=== PATIENT | female | born 1930 | race Caucasian/White ===

== ENCOUNTER 2016-06-11 12:31 | Inpatient (IN) | payer MEDICARE, BC ==
--- NOTE | ~2016-06-11 | CO ---
Unit #: [id number] #: [id number] Patient: VALENTIN BUSTILLO [id number] [address] [place], [place] [address] [id number] I MR#: [id number] NAME: VALENTIN BUSTILLO ROOM: 314 Age: 85 Sex: F Admission Date: 06/11/2016 : 1930 Attending Physician: Nadeem Sales M.D. Primary Care Physician: Louann Young M.D. Requesting Physician: Tatiana Villegas M.D. Consultation Date: 06/13/2016 CONSULTATION REPORT REASON FOR CONSULTATION Lymphadenopathy, please evaluate. HISTORY OF PRESENT ILLNESS The patient is 85-year-old, whom I have seen in the past with thrombocytopenia, who is admitted with a history of end stage renal disease, paroxysmal atrial fibrillation with severe abdominal pain. Pain admitted was all over the abdomen but predominantly in the right side. Now she tells me the pain is much better but is on the left side. Following admission she had a CT scan of the abdomen and pelvis, which showed small bilateral pleural effusions with abnormal thickening around the superior mesenteric artery with significant atherosclerotic disease throughout the abdominal aorta, including the branches. There was mild lymphadenopathy in the abdomen. There was no abdominal lymphadenopathy. It was thought that the thickening around the superior mesenteric artery could be an aneurysm with thrombus. She was seen by vascular surgery who felt that this may be an area of focal vasculitis and recommended hematology evaluation. CT scan of the chest done previously has shown mild mediastinal lymphadenopathy with a paratracheal lymph node measuring 2.8 to 2.1 cm and a subcarinal lymph node at 1.7 cm from 01/06/2016, which has been present since 2014 without a significant change. Ms. Bustillo has mild dementia but is otherwise alert and tells me that she has had no history of any malignancy in the past. No previous night sweats or significant changes in appetite except those accompanying her admission. She tells me bowel habits are generally regular. PAST MEDICAL HISTORY 1. End stage renal disease on hemodialysis for the past year or so. 2. Paroxysmal atrial fibrillation. 3. Congestive heart failure. 4. Hypertension. 5. Hyperlipidemia. 6. Peripheral vascular disease. 7. Anemia and thrombocytopenia in the past. 8. Chronic respiratory failure. 9. COPD. 10. Obstructive sleep apnea. 11. Dementia. PAST SURGICAL HISTORY 1. Cholecystectomy. 2. Hysterectomy. 3. Shoulder surgery. 4. Elbow surgery. Unit #: [id number] #: [id number] Patient: VALENTIN BUSTILLO 5. Coronary bypass grafting. 6. AV fistula. FAMILY HISTORY Notable for father dying at age 90 and a brother at the same age as well. SOCIAL HISTORY Personal smoker. Denied any alcohol. She currently lives alone, using a walker. ALLERGIES Morphine. REVIEW OF SYSTEMS Fourteen point review of systems taken. CONSTITUTIONAL: As discussed above. EYES: Negative. EARS, NOSE, MOUTH AND THROAT: Negative. CARDIOVASCULAR: No chest pain or palpitation. RESPIRATORY: Negative. GASTROINTESTINAL: As discussed. GENITOURINARY: Negative. NEUROLOGIC: History of mild dementia. ALLERGIC/LYMPHATICS: Negative. SKIN: Easy bruisability. PSYCHIATRIC: Negative. PHYSICAL EXAMINATION GENERAL: She is a pleasant, elderly woman, awake, alert, and oriented x3. VITAL SIGNS: Temperature is 98.2, pulse 72, respiratory 16, blood pressure 184/85, which sats 94% on room air. HEENT: Pupils are equal and react well. No pallor or icterus. Mucous membranes are moist. NECK: No JVD or thyromegaly. CARDIOVASCULAR: First and second heart sounds were heard and regular. No murmurs, gallops, or rubs. LUNGS: Chest expansion was symmetric with some decreased air entry at the bases. No adventitious sounds. ABDOMEN: Soft and nontender. Bowel sounds are present. No organomegaly. EXTREMITIES: Warm with good pulses. No edema, cyanosis or clubbing. NEUROLOGICAL: She is awake, alert and oriented x3, no focal findings. PSYCHIATRIC: Normal affect. LYMPHATICS: Negative. SKIN: Some bruises. DIAGNOSTIC STUDIES LABORATORY STUDIES: CBC with a white count of 5.9, hemoglobin 9.4, platelet count is 145,000. A complete metabolic panel - BUN 20, creatinine 2. EGFR is 25.2. Total protein 5.1, albumin 2.7. IMAGING STUDIES: Radiology - CT scan of the abdomen and pelvis was personally reviewed by me and shows no abdominal lymphadenopathy or splenomegaly. Thickening of the superior mesenteric artery as mentioned. ASSESSMENT AND PLAN Ms. Valentin Bustillo is 85 years old with a history of multiple complex medical problems including coronary artery disease, paroxysmal atrial fibrillation, congestive heart failure, end stage renal disease, and mild Unit #: [id number] #: [id number] Patient: VALENTIN BUSTILLO, who was on maintenance hemodialysis. She is admitted to the hospital with abdominal pain, which appears to have resolved for the greater part at this moment. 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 She has no other evidence of abdominal lymphadenopathy but has had a history of mediastinal lymphadenopathy, which has been stable in the past without any new CT scans. I discussed the situation with Ms. Bustillo and thereafter with Dr. Matson of interventional radiology. It may be possible to do an FNA of the thickening around the superior mesenteric artery. However, the yield is likely to be low. He still favors vasculitis or thrombus in an aneurysm. Will get a sedimentation rate, C reactive protein, (1) LDH and based upon that, I will discuss. Will also (2) of advanced age and end stage renal failure. Thank you for allowing me to participate in her care. Dictated by... Augustus Pruitt/margie TD: 06/14/2016 06:13 JOB #: [id number] CONSULTATION REPORT X Cleveland Carey MD X CONSULTATION REPORT
--- NOTE | ~2016-06-11 | CT2 ---
[facility] A Service of [facility] RADIOLOGY TEXT RESULTS PATIENT: VALENTIN ASHLEY LOCATION: [facility] 314-01 : 30 UNIT #: [id number] AGE: [address]: Tatiana Villegas MD SEX: F ORDER DR: [id number] [facility] [address] [facility]. [place], [place] [address] [id number] MR#: [id number] Acc #: [id number] NAME: VALENTIN ASHLEY : 1930 SEX: F STUDY DATE/TIME: 06/11/2016 14:41 UNIT: JAYDEN ROOM: STUDY DESCRIPTION: CT Abd and Pelv W Cont Attending Physician: Penelope Herrera M.D. Ordering Physician: Penelope Herrera M.D. Primary Care Physician: Louann Young M.D. MEDICAL IMAGING REPORT This report is preliminary unless electronic signature is present EXAM CT abdomen and pelvis with contrast 06/11/2016 INDICATIONS Left-sided abdominal pain for the past 4 days. PROCEDURE Contrast-enhanced CT of the abdomen and pelvis. This CT exam was performed with one or more of the following radiation dose reduction techniques: automatic exposure control, adjustment of mA and/or kV according to patient size, and iterative reconstruction. COMPARISON STUDIES 06/11/[address] ABDOMEN WITH CONTRAST: There are bilateral pleural effusions small on the right, moderately large on the left. The liver, spleen, kidneys, adrenal glands, pancreas show no acute abnormality. Previous cholecystectomy. There is abnormal thickening, surrounding the SMA. This was seen on the previous study and is similar. There is significant atherosclerotic disease throughout the abdominal aorta including major abdominal branch arteries. Probably significant narrowing at the origin of the SMA. Bowel loops are nondilated. Sigmoid diverticula without convincing evidence for active complication. PELVIS WITH CONTRAST: Small amount of nonspecific fluid in the pelvis. Generalized body wall edema. No aggressive appearing bone lesion. IMPRESSION [facility] A Service of [facility] RADIOLOGY TEXT RESULTS PATIENT: VALENTIN ASHLEY LOCATION: [facility] 314-01 : 30 UNIT #: [id number] AGE: [address]: Tatiana Villegas MD SEX: F ORDER DR: 1. Bilateral pleural effusions left greater than right are similar to the prior. 2. Abnormal enhancing soft tissue around the proximal SMA. 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 3. Significant atherosclerotic irregularity in the abdominal aorta and major abdominal branch arteries with probably significant narrowing at the origin of the SMA. 4. No evidence for bowel obstruction. 5. Other findings detailed above. Dictated by... Ravinder Oseguera M.D. THIS IS AN ELECTRONICALLY VERIFIED REPORT Ravinder Oseguera M.D. at 06/12/2016 7:18 AM LUIS ANGEL/jasvir TD: 06/11/2016 18:13 JOB #: [id number] MEDICAL IMAGING REPORT COPY
--- NOTE | ~2016-06-11 | CO ---
Unit #: [id number] #: [id number] Patient: VALENTIN BUSTILLO [id number] [address] [place], [place] [address] [id number] I MR#: [id number] NAME: VALENTIN BUSTILLO ROOM: 314 Age: 85 Sex: F Admission Date: 06/11/2016 : 1930 Attending Physician: Nadeem Sales M.D. Primary Care Physician: Louann Young M.D. Consultation Date: 06/14/2016 CONSULTATION REPORT REASON FOR CONSULTATION Abdominal pain. HISTORY OF PRESENT ILLNESS Thank you very much for asking us to see Ms. Bustillo. She is an 85-year-old white female, whose past medical history is remarkable for end-stage renal disease, on dialysis; atrial fibrillation; congestive heart failure; hyperlipidemia; hypertension; peripheral vascular disease; chronic respiratory failure; COPD; coronary artery disease; who presented with a 7 to 10 day history of abdominal pain. The pain is diffuse and constant. She has had some nausea, but no vomiting. She denies GI bleeding. She has had some loose bowel movements. She had a CT scan performed on 06/07/2016 and at that time, the CT scan revealed an abnormal appearance to the origin of this superior mesenteric artery. It involved 2 cm of the distance with some dilatation proximally. She was sent home and was readmitted with abdominal pain. A repeat CT scan on 06/11/2016 revealed abnormal appearance of the proximal superior mesenteric artery. There was circumferentially soft tissue density material around the proximal 2.8 cm of the SMA. This is more than it was before. There are some changes in that area as well. The patient had evaluation by Dr. Neri of Vascular Surgery and had her CT scan performed with contrast and this showed some significant narrowing in this area. She was admitted for further evaluation. She presents at this time for evaluation of her abdominal pain. PAST SURGICAL HISTORY Cholecystectomy, hysterectomy, shoulder surgery, elbow surgery, coronary artery bypass grafting, AV fistula for dialysis. SOCIAL HISTORY No tobacco or alcohol use. FAMILY HISTORY Noncontributory. ALLERGIES Morphine. MEDICATIONS Please see med rec sheet. PAST MEDICAL HISTORY See above. Unit #: [id number] #: [id number] Patient: VALENTIN BUSTILLO IMMUNIZATION STATUS Unknown. PHYSICAL EXAMINATION GENERAL: Weak-appearing, white female, in no apparent distress. VITAL SIGNS: Afebrile. Vital signs stable. NECK: Supple. No thyromegaly or adenopathy. BACK: No CVA or spinous tenderness. ABDOMEN: Examination of the abdomen reveals diffuse tenderness with some guarding left greater than right, but no rebound or peritoneal signs or masses. DIAGNOSTIC STUDIES LABORATORY RESULTS: Reveal the patient to have a CMP with a glucose of 90, BUN 15, creatinine 2.9, sodium 135, potassium 3.7, CO2 is 26. Liver function studies 2 days ago were within normal limits. The CBC reveals the patient to have a white count of 3.6, hemoglobin 9.6, hematocrit 29.7, MCV of 85.8, and platelet count of 134,000. IMPRESSION An 85-year-old female with diffuse abdominal pain, changes to the superior mesenteric artery, and significant narrowing. She has diffuse abdominal pain. No other significant abnormalities were found on CT scan. We feel she needs upper as well as lower endoscopy for further evaluation for possible gastritis or ulcer disease and in addition possibly colitis or evidence of ischemic changes to the lining of the large intestine. All the risks and benefits have been fully explained to the patient in detail as well as to her granddaughter including the risk of bleeding, perforation, emergency surgery, transfer, , and other risks. They understand completely and requests to proceed. We will also have Dr. Neri of Vascular Surgery to re-evaluate. Dictated by... Augustus Nicholas/ananya TD: 06/15/2016 06:28 JOB #: [id number] CC: Augustus Pruitt M.D. [facility] CONSULTATION REPORT X Reese Tejeda MD CONSULTATION REPORT
--- NOTE | ~2016-06-11 | CR206 ---
[facility] A Service of [facility] RADIOLOGY TEXT RESULTS PATIENT: VALENTIN ASHLEY LOCATION: [facility] 314-01 : 30 UNIT #: [id number] AGE: [address]: Nadeem Sales MD SEX: F ORDER DR: [id number] [facility] [address]. [place], [place] [address] [id number] I MR#: [id number] #: [id number] NAME: VALENTIN ASHLEY : 1930 SEX: F STUDY DATE/TIME: 06/14/2016 13:11 UNIT: A U ROOM: [facility] STUDY DESCRIPTION: CR Pelvis 1 or 2 Views Attending Physician: Nadeem Sales M.D. Ordering Physician: Nadeem Sales M.D. Primary Care Physician: Louann Young M.D. MEDICAL IMAGING REPORT This report is preliminary unless electronic signature is present EXAM AP radiograph pelvis 06/14/2016 HISTORY Fall. Pain in hips. Fell today. FINDINGS AP radiograph of the pelvis presented. Multiple surgical clips over the mid abdomen. No traumatic fracture or malalignment. The visualized proximal femurs are intact. Bony ring of pelvis, sacroiliac joints, and sacral arcuate lines appear intact. Bowel gas pattern normal. Atherosclerotic arterial calcifications. Surgical clips medial upper right thigh perhaps from prior vascular intervention. Periarticular soft tissues show no acute appearing abnormality. Dictated by... Michael Montano M.D. THIS IS AN ELECTRONICALLY VERIFIED REPORT Michael Montano M.D. at 06/16/2016 8:22 PM REZA/jace TD: 06/14/2016 15:37 JOB #: [id number] MEDICAL IMAGING REPORT COPY
--- NOTE | ~2016-06-11 | HP ---
Unit #: [id number] #: [id number] Patient: VALENTIN ASHLEY [id number] [facility] [address] [facility]. [place], [place] [address] [id number] MR#: [id number] NAME: VALENTIN ASHLEY ROOM: Age: 85 Sex: F Admission Date: 06/11/2016 : 1930 Attending Physician: Penelope Herrera M.D. Primary Care Physician: Louann Young M.D. HISTORY AND PHYSICAL CHIEF COMPLAINT Abdominal pain. HISTORY OF PRESENT ILLNESS The patient is an 85-year-old female with past medical history of end-stage renal disease on dialysis, paroxysmal atrial fibrillation, CHF, hypertension, hyperlipidemia, peripheral vascular disease, chronic anemia, chronic respiratory failure, COPD, obstructive sleep apnea, coronary artery disease, chronic thrombocytopenia, gout, dementia who presented to the emergency department for evaluation of the above. The patient states that she has had a one-week history of abdominal pain. The pain involves the entire abdomen but is worse on the right side. She describes it as "severe." There are no exacerbating or alleviating factors. She denies any similar pain. She has had decreased appetite with nausea but no vomiting. She states that her last bowel movement was three to four days ago. She denies any fever. No chest pain. No difficulty breathing. No urinary symptoms. She still makes urine. She was due for dialysis today. Of note, the patient was seen at [facility] on June 07, 2016 for shortness of breath and dyspnea. She underwent a CT of the abdomen and pelvis as part of her evaluation. She was discharged home with a diagnosis of CHF. Today, she returns due to persisting pain. CT of the abdomen and pelvis was repeated today and showed abnormal appearance of the proximal superior mesenteric artery concerning for possible aneurysm. Mildly enlarged adjacent lymph nodes are also noted concerning for possible lymphoproliferative disease. A CT with contrast was recommended. After discussion between Dr. Mustafa and the ER physician, the patient underwent a CT with contrast. This was reviewed by Dr. Neri of vascular. He did not think there was any vascular surgery issue. He agreed to see the patient in consultation. The patient was given Dilaudid and Zofran in the emergency department. She is being admitted to [facility] for evaluation and further treatment. PAST MEDICAL HISTORY 1. Admission to [facility] March 20 through March 22, 2016, for VRE urinary tract infection. 2. End-stage renal disease on dialysis, followed by Dr. Mustafa. She receives dialysis on Saturday, Saturday, Saturday. 3. Paroxysmal atrial fibrillation: The patient has seen Dr. Sethi in the past. 4. Congestive heart failure: The patient had an echocardiogram, June 20, 2010, that showed an ejection fraction of 50% to 55% with mild concentric left ventricular hypertrophy, mild septal hypokinesis, mild mitral regurgitation, mild tricuspid regurgitation, mild aortic Unit #: [id number] #: [id number] Patient: VALENTIN ASHLEY regurgitation, right ventricular systolic pressure 30-40 mmHg. 5. Hypertension. 6. Hyperlipidemia. 7. Peripheral vascular disease. 8. History of nonsustained ventricular tachycardia. 9. Chronic anemia. 10. Chronic respiratory failure. 11. COPD. 12. Obstructive sleep apnea. 13. Coronary artery disease, status post two-vessel coronary artery bypass grafting. 14. Chronic thrombocytopenia. 15. Gout. 16. Dementia. PAST SURGICAL HISTORY 1. Cholecystectomy. 2. Hysterectomy. 3. Shoulder surgery. 4. Elbow surgery. 5. Coronary artery bypass grafting. 6. Fistula. SOCIAL HISTORY The patient lives alone. There is no tobacco or alcohol use. She walks with a walker. CODE STATUS Her code status is a do not resuscitate. FAMILY HISTORY Notable for her dad dying at the age of 90. She had a brother that also at the age of 90. There is coronary artery disease in the family. ALLERGIES Morphine. HOME MEDICATIONS Per the discharge summary from March 22, 2016 include: 1. Proventil. 2. Pulmicort. 3. Advair. 4. Celexa. 5. Claritin. 6. Coreg. 7. Aricept. 8. Lasix. 9. Lipitor. 10. Hydralazine. 11. Zestril. 12. Allopurinol. 13. Multivitamin. 14. Protonix. 15. Phos-Lo. 16. Levothyroxine. 17. Imdur. Home medications will need to be reviewed and verified. Unit #: [id number] #: [id number] Patient: VALENTIN ASHLEY REVIEW OF SYSTEMS A 10-point review of systems is negative except as indicated in the HPI. DIAGNOSTIC STUDIES LABORATORY: Complete blood count notable for hemoglobin and hematocrit of 11 and 33.3 respectively. Comprehensive metabolic panel notable for chloride of 98, BUN and creatinine 17 and 2 respectively. Albumin 3.3. Lipase 37. Urinalysis notable for 2+ protein. INR is 1.1. Troponin is less than 0.05. Lactic acid 1.3. BNP is 1006. IMAGING: CT of the abdomen and pelvis showed abnormal superior mesenteric artery with mildly enlarged adjacent lymph nodes concerning for aneurysm versus lymphoproliferative disease. A CT with contrast was done and apparently reviewed by Dr. Neri of vascular. That report is pending at the time of this dictation. Small right pleural effusion and moderate left pleural effusion are also noted. The right pleural effusion is decreased compared to prior. The left is stable. Chest x-ray shows no active disease. PHYSICAL EXAMINATION VITAL SIGNS: Temperature is 97.5, pulse 65, respirations 18, blood pressure 200/40. GENERAL: The patient is a female who is awake and alert. HEENT: The head is atraumatic. Mucous membranes are moist. NECK: Supple. Trachea is midline. CARDIOVASCULAR: Irregular. LUNGS: Demonstrate decreased breath sounds at the bases. Breathing is not labored with conversation. ABDOMEN: Soft. She is tender to palpation throughout (right greater than left). Bowel sounds are present in all four quadrants. EXTREMITIES: Nontender with no pedal edema. NEUROLOGIC: The patient is awake and alert. She is oriented x3. She follows commands. PSYCHIATRIC: Mood and affect are normal. The patient is cooperative. SKIN: Skin of examined areas is warm and dry. ASSESSMENT The patient is an 85-year-old female with: 1. Abdominal pain. 2. Superior mesenteric artery aneurysm: Dr. Neri of vascular surgery has already seen the patient and does not think there is any indication for surgery at this time. 3. Lymphadenopathy surrounding the superior mesenteric artery concerning for possible lymphoproliferative disorder. 4. End-stage renal disease on dialysis Saturday, Saturday, Saturday followed by Dr. Mustafa. 5. Paroxysmal atrial fibrillation not on chronic anticoagulation due to gastrointestinal bleed. 6. Congestive heart failure with ejection fraction as noted above. 7. Bilateral pleural effusions are noted on CT. The right is decreased compared to prior. The left is stable. 8. Hypertension. 9. Hyperlipidemia. 10. Peripheral vascular disease. 11. History of nonsustained ventricular tachycardia. 12. Chronic anemia. Unit #: [id number] #: [id number] Patient: VALENTIN ASHLEY 13. Chronic respiratory failure. 14. Chronic obstructive pulmonary disease. 15. Obstructive sleep apnea. 16. Coronary artery disease, status post coronary artery bypass grafting. 17. Chronic thrombocytopenia: Platelets are normal today. 18. Gout. 19. Dementia. PLAN 1. Admit for observation to intermediate level. 2. Advance to clear liquids as tolerated. 3. P.r.n. Dilaudid. 4. P.r.n. Zofran. 5. Consult Dr. Neri of vascular surgery regarding superior mesenteric artery aneurysm. 6. Consult Dr. Pack regarding superior mesenteric artery lymphadenopathy and possible lymphoproliferative disorder. 7. Consult Dr. Mustafa regarding end-stage renal disease and dialysis needs. 8. Check EKG and cardiac enzymes. 9. Strict ins and outs. 10. Daily weights. 11. Supplemental oxygen 2 to 4 L to maintain saturations greater than 92%. 12. Repeat labs in the morning. 13. Sequential compression devices for deep venous thrombosis prophylaxis. 14. Additional workup and consultants based on above. 15. Regarding code status, the patient is a do not resuscitate. Dictated by Augustus Jackson/sabas TD: 06/11/2016 16:51 JOB #: [id number] HISTORY AND PHYSICAL X Tatiana Villegas MD X HISTORY AND PHYSICAL
--- NOTE | ~2016-06-11 | CO ---
Unit #: [id number] #: [id number] Patient: VALENTIN ASHLEY [id number] [address] [place], [place] [address] [id number] I MR#: [id number] NAME: VALENTIN ASHLEY ROOM: 314 Age: 85 Sex: F Admission Date: 06/11/2016 : 1930 Attending Physician: Nadeem Sales M.D. Primary Care Physician: Louann Young M.D. CONSULTATION REPORT ADDENDUM PHYSICAL EXAMINATION CONSTITUTIONAL: Well appearing, in no acute distress. HEENT: Eyes, no scleral icterus. NECK: No JVD. No carotid bruits. LYMPH: No lymphadenopathy in the neck or groins. CARDIOVASCULAR: Irregularly irregular. Pulse exam; 2+ femoral pulses. RESPIRATORY: Nonlabored respirations. GI: Soft, minimally tender to the epigastrium, nondistended, healed midline incision. SKIN: No rashes or ulcerations. PSYCHIATRIC: Normal mood and affect. REVIEW OF SYSTEMS CONSTITUTIONAL: No fevers or chills. HEENT: No ear pain, tinnitus or sore throat. RESPIRATION: Positive for shortness of breath. Negative for cough. CARDIOVASCULAR: Positive for chest pain. Negative for palpitations. GI: Positive for nausea and vomiting. Negative for diarrhea. : Negative for hematuria. Positive for history of urinary tract infections. HEME: Negative for easy bruising. ENDOCRINE: Negative for excessive thirst or hunger. MUSCULOSKELETAL: Negative for back pain or neck pain. INTEGUMENTARY: Negative for rash or pruritus. ASSESSMENT AND PLAN I reviewed the patient's CTA with contrast, which demonstrated patent superior mesenteric artery, there is no evidence of an aneurysm. There does appear to be an inflammation around the superior mesenteric artery which raises the issue of vasculitis. I talked to the emergency room physician Dr. Herrera about confronting infectious disease, potentially start her on empiric antibiotics as well as adding on a CRP. I do not think it is infectious, given the patient's overall objective findings of no fevers, chills, no temperature and no white blood cell count. It may be medium vessel vasculitis, at which point, Rheumatology consult should be considered for initiation of a steroid taper. I also discussed the patient with Dr. Mustfaa, who was consulted from Nephrology standpoint. We will attempt to access her dialysis catheter tonight for dialysis. Potentially, we access her fistula, which she has a strong left brachiocephalic thrill either as an outpatient or later on. Unit #: [id number] #: [id number] Patient: VALENTIN ASHLEY Vascular surgery will continue to follow the patient while she is admitted as an inpatient, but does not appear to be any acute surgical intervention required at this time. Dictated by... Augustus Parmar TD: 06/12/2016 04:24 JOB #: [id number] CONSULTATION REPORT X X CONSULTATION REPORT
--- NOTE | ~2016-06-11 | CO ---
Unit #: [id number] #: [id number] Patient: VALENTIN ASHLEY [id number] [facility]. [address] [place], [place] [address] [id number] MR#: [id number] NAME: VALENTIN ASHLEY ROOM: 314 Age: 85 Sex: F Admission Date: 06/15/2016 : 1930 Attending Physician: Nadeem Sales M.D. Primary Care Physician: Louann Young M.D. CONSULTATION REPORT REASON FOR CONSULTATION AFib and bradycardia. HISTORY OF PRESENT ILLNESS This is an 85-year-old white female, who is well known to Dr. Harper, has a past medical history of permanent AFib, not currently on any anticoagulation due to GI bleeding; coronary artery disease, status post two-vessel CABG in 2004; non-STEMI in 06/2015; hypertension; hyperlipidemia; diabetes; COPD; obstructive sleep apnea requiring CPAP at night; end-stage renal disease, on hemodialysis; hypothyroidism; peripheral vascular disease; bilateral carotid stenosis; nonsustained V-tach; dementia; and the patient is a DNR. She was admitted for dialysis shunt infection, enterococcal bacteremia. Cardiology was asked to see her for some bradycardia. She is in permanent AFib and is asymptomatic. She denies shortness of breath. She denies any palpitation. She denies any chest pain. She denies dizziness, lightheadedness, or syncope. Her only complaint today was productive cough. Recent cardiac testing includes carotid ultrasound in 05/2015, which showed less than 50% stenosis on the right and 50% to 69% stenosis on the left internal carotid artery, coronary artery bypass graft in 2004. She had MULLER to the LAD and saphenous vein graft to an obtuse marginal. Cardiac catheterization done in 06/2015, status post non-STEMI. The patient had patent MULLER and saphenous vein graft. Left main had nonobstructive 30% to 40% stenosis, ostial to the left circumflex artery was 30% stenosis, RCA had a proximal lesion of about 20%, and ostial LAD was 80%. 2D echo done on 12/2015 showed an EF of 50% to 55% with fvsbqmrf-ph-rmywqh LVH with pseudonormalization, zgbv-zu-iyzznill aortic regurgitation, mild tricuspid regurgitation, and RVSP with 46 mmHg and she had [id number]-[id number] dilated left atrium. To note, the patient was recently admitted with abdominal pain and had multiple CTs of the abdomen and workup by the vascular team for mesenteric artery abnormality. She came back on 06/13/2016 with fever. Vascular was reconsulted to remove her tunnel catheter for dialysis access. PAST SURGICAL HISTORY Includes cholecystectomy, hysterectomy, shoulder surgery, elbow surgery, coronary artery bypass graft x2 in 2004, and dialysis fistula. ALLERGIES Morphine. Unit #: [id number] #: [id number] Patient: VALENTIN ASHLEY HOME MEDICATIONS Includes lisinopril 10 mg daily, Imdur 60 mg daily, Protonix 40 mg daily, allergy pill 1 daily, citalopram, hydralazine 120 mg b.i.d., donepezil 10 mg daily, allopurinol 100 mg daily, levothyroxine 100 mcg daily, atorvastatin 10 mg daily, Coreg 6.25 b.i.d., Advair inhaler b.i.d., Ventolin 2 puffs inhaler q.i.d. FAMILY HISTORY Noncontributory. SOCIAL HISTORY She quit smoking over 20 years ago. She does live alone, but her daughter comes over and organizes and manages her medications and she is compliant with those. She did tell me that prior to her bypass surgery in 2004, she was a quite heavy drinker and drink about 3 drinks per day, but has not touched it since her open heart surgery. REVIEW OF SYSTEMS Complete review of system was essentially negative except for what was noted above in the HPI. PHYSICAL EXAMINATION VITAL SIGNS: Temperature 97.4, heart rate of 62, respirations 18, blood pressure 134/38. She weighs 53 kg and her BMI is 22. GENERAL: She appears pale, resting in bed, currently getting dialysis at the time of my interview. HEENT: Head is normocephalic, atraumatic. Pupils are equal, round, reactive to light and accommodation with extraocular movements are intact. Oral mucosal membrane are pale and somewhat dry. She has a missing half teeth. She wears top plate denture, but bottom teeth are intact. NECK: Supple. She does have a faint right carotid bruit noted. No JVD. LUNGS: Bilateral scattered crackles with no increased effort. CARDIOVASCULAR: She has irregularly irregular rhythm with distant heart sounds. I could not appreciate any murmur, gallops, or rubs. ABDOMEN: Soft, nontender with positive bowel sounds. EXTREMITIES: Thin. No edema noted. DIAGNOSTIC STUDIES CARDIOVASCULAR STUDIES: She had a Lexiscan Cardiolite on 06/20/2010 had suspicion for stress-induced ischemia involving anterolateral wall, EF at that time was 59%. There was no focal wall motion abnormality seen. It was an abnormal Lexiscan test, but it was technically limited study. She did also have a Holter monitor in 01/2012, which resulted in several episodes of AFib throughout a 24 hour monitoring period. Average ventricular beat was 73 beats per minute, longest pause noted was 2.46 seconds. She had some PVCs and a 3-beat run of V-tach with a max heart rate of 182 beats per minute. It appears she was asymptomatic during that. A 12 lead EKG showed AFib with controlled rate of 68 beats per minute, QTc of 480. She did have T-wave inversion in various leads including V1 through V5, leads I, II, and III as well. LABORATORY RESULTS: Include sodium 139, potassium 4.6, chloride 101, CO2 of 26, BUN 52, creatinine 2.7, glucose 116. Lipids were drawn in 07/2015 were essentially normal. White blood count of 4.8, hemoglobin of 11, hematocrit 33.4, platelet count 137. IMAGING STUDIES: Two-view chest x-ray done on 06/18/2016 showed new mild linear atelectasis in the left lung base compared to exam dated Unit #: [id number] #: [id number] Patient: VALENTIN ASHLEY 06/11/2016. Remainder of the lungs were clear. No pleural effusions noted. ASSESSMENT 1. Enterococcus bacteremia. 2. Asymptomatic bradycardia. 3. Paroxysmal atrial fibrillation. 4. Normal left ventricular function with an ejection fraction of 50% to 55%. 5. Nonobstructive coronary artery disease, status post left heart cath in 06/2015. PLAN Cardiology will follow. She had a TSH, which was normal. She does not need a pacemaker at this time. She is in AFib, so she will be somewhat irregular and have pauses, but none of her pauses have been more than 3 seconds. We will discontinue her Coreg to improve her bradycardia, but she is not symptomatic with that, so she will just need monitoring. She was seen and examined by Dr. Sethi. Thank you for this consult. We will continue to see her through her hospitalization. Further plan per attending MD. Dictated by... Brenda Grullon APRN for Augustus Rao/ananya TD: 06/20/2016 22:54 JOB #: [id number] CONSULTATION REPORT X X CONSULTATION REPORT
--- NOTE | ~2016-06-11 | DS ---
Unit #: [id number] #: [id number] Patient: VALENTIN ASHLEY [id number] [facility] [address] [place], [place] [address] [id number] I MR#: [id number] NAME: VALENTIN ASHLEY ROOM: 314 Age: 85 Sex: F Admission Date: 06/15/2016 : 1930 Discharge Date: 06/22/2016 Attending Physician: Nadeem Sales M.D. Primary Care Physician: Louann Young M.D. DISCHARGE SUMMARY DIAGNOSIS ON ADMISSION Abdominal pain. DIAGNOSES ON DISCHARGE 1. Superior mesenteric artery vasculitis. 2. Enterococcal bacteremia, status post hemodialysis catheter removed. 3. End-stage renal disease on hemodialysis. 4. Chronic anemia. 5. Paroxysmal atrial fibrillation. 6. History of congestive heart failure. 7. Valvular heart disease with mild mitral and tricuspid and aortic regurgitation. 8. Hyperlipidemia. 9. Peripheral vascular disease. 10. Nonsustained ventricular tachycardia. 11. Chronic obstructive pulmonary disease. 12. Obstructive sleep apnea syndrome. 13. Coronary artery disease, status post coronary artery bypass grafting. 14. Mild dementia. 15. Gout. 16. Chronic thrombocytopenia. CONSULTATIONS 1. Dr. Tejeda in surgical consultation. 2. Dr. Cerna in cardiac consultation. 3. Dr. Mustafa in renal consultation. 4. Dr. Thompson in vascular surgery consultation. DIAGNOSTIC STUDIES LABORATORY: The patient's creatinine is 3, sodium 129, potassium 3.9. WBC 7.7, hemoglobin 10.8, platelet count 175,000. HOSPITAL COURSE An 85-year-old patient was admitted to [facility] with abdominal pain. Details are as per admission H and P. Abdominal pain: The patient had extensive workup done. There was some inflammation around superior mesenteric artery. The patient was diagnosed with vasculitis and was treated with Solu-Medrol which had a wonderful response with remarkable improvement abdominal pain. Patient has not complained of abdominal pain since then. Enterococcal bacteremia: The patient was seen by infectious disease in consult. The hemodialysis catheter was removed. The repeat blood culture Unit #: [id number] #: [id number] Patient: VALENTIN ASHLEY had revealed no growth so far. Dr. Savage has recommended vancomycin for two weeks with hemodialysis. Last date will be July 02. Today patient is comfortable, is not in any acute distress, is anxious to leave hospital. PHYSICAL EXAMINATION VITAL SIGNS: Reveal temperature of 98.6, pulse is 82 per minute, respiratory rate is 18 per minute, blood pressure is 130/74. HEENT: Revealed no conjunctival congestion. Sclerae is nonicteric. NECK: Supple. Trachea is central. RESPIRATORY: Revealed breath sounds equal bilaterally. There are no wheezes or crackles. HEART: Regular rate and rhythm. S1, S2. ABDOMEN: Soft, nontender. Bowel sounds are present in all four quadrants. NEUROLOGIC: Strength is 4/5 bilaterally. SKIN: Warm and dry. RECOMMENDATIONS ON DISCHARGE Condition is stable. Activity as tolerated. MEDICATIONS 1. Ventolin MDI two puffs q.4 hours p.r.n. 2. Advair 250/50 one inhalation b.i.d. 3. Prednisone 20 mg p.o. daily for one week, then 10 mg p.o. daily. Kindly taper patient's prednisone according to if her abdominal pain improves. She is on prednisone for superior mesenteric artery vasculitis. 4. Celexa 10 mg p.o. nightly. 5. Norvasc 10 mg p.o. daily. 6. Colace 100 mg p.o. b.i.d. 7. Aricept 10 mg p.o. nightly. 8. Lasix 40 mg p.o. daily. 9. Lipitor 10 mg p.o. nightly. 10. Lisinopril 10 mg p.o. daily. 11. Allopurinol 100 mg p.o. nightly. 12. Protonix 40 mg p.o. daily. 13. Synthroid 100 mcg p.o. daily. 14. Imdur ER 60 mg p.o. nightly. FOLLOWUP The patient is advised to follow up with primary care physician after discharge from rehab facility. DISPOSITION The patient will be transferred to rehab. Please feel free to call us if there are any questions regarding this hospitalization. The plan has been discussed multiple times with patient's daughter who has shown complete understanding. The patient's family is completely aware of the fact that patient's overall prognosis is poor and are willing to consider palliative care if her condition declines. Dictated by... Unit #: [id number] #: [id number] Patient: VALENTIN ASHLEY M.D. MB/ch TD: 06/22/2016 12:01 JOB #: [id number] CC: Augustus Boss M.D. DISCHARGE SUMMARY X Nadeem Sales MD X DISCHARGE SUMMARY
--- NOTE | ~2016-06-11 | CO ---
Unit #: [id number] #: [id number] Patient: VALENTIN BUSTILLO [id number] [address] [place], [place] [address] [id number] I MR#: [id number] NAME: VALENTIN BUSTILLO ROOM: 314 Age: 85 Sex: F Admission Date: 06/11/2016 : 1930 Attending Physician: Tatiana Villegas M.D. Primary Care Physician: Louann Young M.D. Consultation Date: 06/11/2016 CONSULTATION REPORT REASON FOR CONSULT Renal failure. Thank you very much for asking us to see this patient in consultation. HISTORY OF PRESENT ILLNESS Ms. Shelli Bustillo is an 85-year-old female with history of ESRD since 12/2015 with hemodialysis every Saturday, Saturday, and Saturday, who is currently using a tunneled catheter, although does have a matured fistula, who apparently was used several times when infiltrated, then being rested and continues to have dialysis through the tunneled catheter, who presented to the emergency room this morning with nausea, vomiting, constipation. She has chronic shortness of breath. She had increased abdominal pain. The patient had a CT scan of the abdomen and pelvis due to the abdominal pain, which showed a 2.1 cm area in the SMA, possible aneurysm versus inflammation, infection, etc. The patient is supposed to have a CT scan with contrast today as well and admitted. We were asked to see the patient due to renal failure. The patient is alert. She does have a history of some underlying dementia, although she is alert and oriented. She denies any chest pain, fevers or chills, any cough, any significant urinary symptoms, any lower extremity swelling. PAST MEDICAL HISTORY She has a history of VRE Enterococcus; urinary tract infection; history of nonsustained ventricular tachycardia; history of end-stage renal disease as mentioned above; history of anemia; history of COPD, on home O2; history of chronic thrombocytopenia; history of hypertension; history of atherosclerotic coronary artery disease, status post coronary artery bypass graft; history of obstructive sleep apnea; history of hypothyroidism; history of depression; history of gastroesophageal reflux disease; history of hyperlipidemia; history of peripheral vascular disease; history of gout; history of questionable mild dementia. MEDICATIONS Her medications at home include inhalers, Celexa 10 mg a day, Aricept 10 mg a day, Lasix 40 mg b.i.d., Lipitor 10 mg a day, Coreg 6.25 mg b.i.d., hydralazine 100 mg t.i.d., Zestril 5 mg a day, allopurinol 100 mg a day, multivitamin, Protonix daily, PhosLo 2 with each meal, levothyroxine 100 mcg a day, and Imdur 60 mg a day. SOCIAL HISTORY Previous smoker, none now. No alcohol use. ALLERGIES Unit #: [id number] #: [id number] Patient: DION,OPAL Include morphine. REVIEW OF SYSTEMS As mentioned in the HPI, otherwise negative. FAMILY HISTORY Noncontributory. PHYSICAL EXAMINATION GENERAL: She is alert. VITAL SIGNS: Temperature is 97.5, pulse is 65 to 86, blood pressure is elevated at 166 up to 227 over 30s to 40s. HEENT: She is normocephalic and atraumatic. Pupils are equal, round, and reactive to light. Extraocular muscles are intact. Hearing appears to be normal. Mouth clear. No erythema. No exudate. NECK: Supple. No adenopathy. CARDIAC: She appears to have a regular rhythm without a rub. No S3 or S4. LUNGS: She has some rales in her bases. Upper lungs are clear. ABDOMEN: Mild diffuse tenderness. No rebound or guarding. No masses are felt. EXTREMITIES: She has no lower extremity swelling. Her pulses are intact in upper and lower extremities. She has a functioning fistula in her left arm with a good thrill. CHEST: She has a tunneled catheter on her left chest. NEUROLOGIC: Appears to be intact motor and sensory grossly. : Deferred. DIAGNOSTIC STUDIES LABORATORY RESULTS: She had a BUN of 17, creatinine 2.0, sodium is 135, potassium 3.5, CO2 of 26, calcium is 9.3, albumin is 3.3. Liver function tests are normal. BNP is 1006. Lactic acid is 1.3. INR is 1.1. Hemoglobin is 11, white count is 8400, platelets 176,000. Urinalysis showed specific gravity of 1.01, 2+ protein, 0 to 2 rbc's, 0 to 2 wbc's. IMAGING STUDIES: Chest x-ray showed no active disease. Again, CT of the abdomen and pelvis showed narrowing of proximal superior mesenteric artery, around 2.8 cm, possibly related to an aneurysm versus infection versus other. Vascular has been consulted and wants the CT scan with contrast. ASSESSMENT AND PLAN 1. End-stage renal disease. We will plan on dialyzing her this afternoon after her CT scan with contrast. We will try to remove 2 L. we will follow her volume and electrolytes throughout her hospitalization. Continue dialysis every Saturday, Saturday, and Saturday. 2. Anemia. Hemoglobin is not bad, 11. We will continue to follow. Check CBC in the morning. EPO with dialysis. 3. Questionable superior mesenteric artery aneurysm versus inflammation versus infection versus other. 4. Hypertension. Blood pressure is elevated. We would recommend restarting her home medications. Consider p.r.n. clonidine or hydralazine. We will try to remove 2 L with dialysis and we will follow trends and adjust medications as clinically indicated. 5. Chronic obstructive pulmonary disease. 6. History of heart disease. Unit #: [id number] #: [id number] Patient: VALENTIN BUSTILLO Dictated by..Augustus Drake/ananya TD: 06/12/2016 04:21 JOB #: [id number] CONSULTATION REPORT X Anton Mustafa MD X CONSULTATION REPORT
--- NOTE | ~2016-06-11 | CO ---
Unit #: [id number] #: [id number] Patient: VALENTIN ASHLEY [id number] [address] [address] [id number] I MR#: [id number] NAME: VALENTIN ASHLEY ROOM: 314 Age: 85 Sex: F Admission Date: 06/15/2016 : 1930 Attending Physician: Nadeem Sales M.D. Primary Care Physician: Louann Young M.D. Consultation Date: 06/19/2016 CONSULTATION REPORT REASON FOR CONSULTATION Positive blood cultures. HISTORY OF PRESENT ILLNESS This is an 85-year-old female with a past medical history of end stage renal disease on dialysis via a tunneled catheter while her left upper arm dialysis site matures. The patient has been admitted with abdominal pain extensively for the last one week. The patient reports that she is unable to relieve it with anything when she was first admitted. The patient has had multiple CT scans of the abdomen and workup by vascular team. The patient was diagnosed with superior mesenteric artery vasculitis. The patient was placed on steroids. She reports that her abdominal pain is somewhat better. The patient, on 06/13/2016, began with fever and she had blood cultures x2 drawn. Yesterday they began growing Gram-positive cocci in pairs and chains, two of two sets. Vascular surgery was reconsulted and her tunneled line has since been removed. This was not sent for culture. ID was asked to evaluate for further management of antibiotics. She was placed on vancomycin. PAST MEDICAL HISTORY Includes: 1. End stage renal disease, on hemodialysis. 2. Paroxysmal atrial fibrillation. 3. CHF. 4. Hypertension. 5. Hyperlipidemia. 6. Peripheral vascular disease. 7. Chronic anemia. 8. Chronic respiratory failure. 9. COPD. 10. Obstructive sleep apnea. 11. Coronary artery disease. 12. Chronic thrombocytopenia. 13. Gout. 14. Dementia. PAST SURGICAL HISTORY Includes: 1. Cholecystectomy. 2. Hysterectomy. 3. Shoulder surgery. 4. Elbow surgery. 5. Coronary artery bypass graft and fistula. Unit #: [id number] #: [id number] Patient: VALENTIN ASHLEY ALLERGIES Morphine. MEDICATIONS Vancomycin. For other medications, please refer to patient's MAR. She is noted to be on steroids. SOCIAL HISTORY The patient does not live with others. She has no alcohol or tobacco abuse or drug use. REVIEW OF SYSTEMS She denies any current fevers, chills, nausea, vomiting, diarrhea. She denies any chest pain or shortness of breath. She does report some mild abdominal pain. She reports she still makes urine but no difficulty with urination. PHYSICAL EXAMINATION VITAL SIGNS: Temperature is 98.2 with a T-max on June 13 of 101.4. Pulse is 67, blood pressure 143/37 and respiratory rate 20. GENERAL: This is a no apparent distress female who is resting in the bed comfortably. She appears weak and pale. CARDIOVASCULAR: S1, S2. Regular rate and rhythm. PULMONARY: Diminished in the bases with no wheezes or rhonchi noted. ABDOMEN: Positive bowel sounds. Soft. Minimal tenderness to palpation. EXTREMITIES: No clubbing, cyanosis or edema. She has an old dialysis site access in her left upper chest without any significant cellulitis. She has a left arm fistula with positive bruit and thrill. DIAGNOSTIC STUDIES LABORATORY DATA: BUN 51, creatinine 2.8, sodium 136, potassium 3.8, chloride 100, CO2 27, bilirubin 0.9 when last checked. Last AST and ALT were 24 and 11 respectively. CK total was 20. Lactic acid 0.7. White blood cell count was 6.5. Hemoglobin 10.5, hematocrit 32.4, platelets 164. Urinalysis on admission was unremarkable. Blood cultures on 06/13 showed two of two sets with Gram-positive cocci in pairs and chains. 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 IMAGING: The patient chest film shows linear atelectasis in the left base which is new. Remainder of the lungs are clear. CT scan of the abdomen on 06/11/2016 showed bilateral pleural effusions with normal enhancing soft tissue around the proximal superior mesenteric artery concerning for focal vasculitis. Narrowing of the superior mesenteric artery. No obstruction. Please see full report for complete details. 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 Placed on steroids with some improvement in her abdominal pain. The patient spiked a fever on 06/13/2016 and blood cultures were done and now have began showing Gram-positive cocci in pairs and chains. The patient does have a history Unit #: [id number] #: [id number] Patient: VALENTIN ASHLEY of VRE in the urine. The patient is status post tunneled line removal as this is suspected source but it does not appear that the tip was sent for culture. Echocardiogram is pending. At this time, would like to recommend to change vancomycin to daptomycin and followup on the ID of the Gram-positive cocci in pairs and chains. Will follow echocardiogram and repeat blood cultures today. This was discussed with the patient and family at the bedside. Thank you for allowing us to participate in the care of this patient. Further recommendations to follow pending patient's clinical course. Dictated by... Mehul AriasPKyRKyNKy for Augustus Renteria/molina TD: 06/19/2016 10:33 JOB #: [id number] CONSULTATION REPORT X X CONSULTATION REPORT
--- NOTE | ~2016-06-11 | EKG ---
PATIENT: VALENTIN ASHLEY UNIT #: [id number] Ventricular Rate: 68 BPM Atrial Rate: 90 BPM QRS Duration: 84 ms Q-T Interval: 452 ms QTC Calculation(Bezet): 480 ms Calculated R [place]: 40 degrees Calculated T [place]: 147 degrees Diagnosis Line: Atrial fibrillation Diagnosis Line: Septal infarct (cited on or before 20-JUN-2016) Diagnosis Line: ST and T wave abnormality, consider anterolateral Diagnosis Line: ischemia Diagnosis Line: Abnormal ECG Diagnosis Line: When compared with ECG of 11-JUN-2016 17:13, Diagnosis Line: Nonspecific T wave abnormality now evident in Diagnosis Line: Inferior leads Diagnosis Line: Confirmed by JO-ANN MACK MD ([id number]) on 06/21/2016 Diagnosis Line: 5:39:18 PM INTERPRETING MD: MARTINA DIAZ
--- NOTE | ~2016-06-11 | EKG ---
PATIENT: VALENTIN ASHLEY UNIT #: [id number] Ventricular Rate: 68 BPM Atrial Rate: 53 BPM QRS Duration: 84 ms Q-T Interval: 482 ms QTC Calculation(Bezet): 512 ms Calculated R [place]: 48 degrees Calculated T [place]: 98 degrees Diagnosis Line: Atrial fibrillation Diagnosis Line: Nonspecific ST and T wave abnormality Diagnosis Line: Prolonged QT Diagnosis Line: Abnormal ECG Diagnosis Line: When compared with ECG of 07-JUN-2016 09:32, Diagnosis Line: T wave inversion now evident in Anterior leads Diagnosis Line: Confirmed by GALINA ARNOLD MD ([id number]) on Diagnosis Line: 06/12/2016 11:54:16 AM INTERPRETING MD: HOANG
--- NOTE | ~2016-06-11 | CT4 ---
[facility] A Service of [facility] & [facility] RADIOLOGY TEXT RESULTS PATIENT: VALENTIN ASHLEY LOCATION: C3A 314-01 : 30 UNIT #: [id number] AGE: [address]: Nadeem Sales MD SEX: F ORDER DR: [id number] [facility] [address]. [place], [place] [address] [id number] E MR#: [id number] Acc #: [id number] NAME: VALENTIN ASHLEY : 1930 SEX: F STUDY DATE/TIME: 06/11/2016 11:18 UNIT: JAYDEN ROOM: STUDY DESCRIPTION: CT Abd and Pelv Wo Cont Attending Physician: Penelope Herrera M.D. Ordering Physician: Penelope Herrera M.D. Primary Care Physician: Louann Young M.D. MEDICAL IMAGING REPORT This report is preliminary unless electronic signature is present EXAM CT abdomen and pelvis 06/11/2016. HISTORY: Pain left abdomen times 4 days. Pain in left abdomen seen in ER 4 days ago. Renal failure. History of kidney stones, renal failure, dementia, gout, anemia, hypertension. The CT exam was performed with one or more of the following radiation dose reduction techniques: automatic exposure control, adjustment of mA and/or kV according to patient size, and iterative reconstruction. CT abdomen and pelvis performed without administration of oral or intravascular contrast. Comparison 06/07/2016. Moderate left and small right pleural effusions. The right pleural effusion has probably increased some in interval from prior study. Subjacent patchy and linear densities likely atelectatic in nature. There may be some mild emphysema at the lung bases. Inferior heart and pericardium unremarkable. Status post cholecystectomy. No focal hepatic parenchymal abnormality. Mild central biliary ductal prominence unchanged and likely related to prior cholecystectomy. No obstructing process seen. Calcified splenic granulomata. Pancreas, adrenal glands unremarkable. No hydronephrosis or nephrolithiasis. Ill-defined exophytic cyst posterior mid left kidney measuring about 1 cm in diameter. No acute appearing perinephric inflammatory change. CT Pelvis: No inguinal adenopathy. Urinary bladder unremarkable. Status post hysterectomy. No suspicious adnexal findings. Small amount of free fluid in the pelvis. Not a drainable fluid collection not significantly changed from prior study. No pelvic or retroperitoneal adenopathy. The distal esophagus, stomach, small bowel are unremarkable. Appendix not clearly identified but no right lower quadrant pericecal inflammatory STS. [facility] A Service of [facility] RADIOLOGY TEXT RESULTS PATIENT: VALENTIN ASHLEY LOCATION: C3A 314-01 : 30 UNIT #: [id number] AGE: [address]: Nadeem Sales MD SEX: F ORDER DR: changes seen. Note is made of a prominent duodenal diverticulum in the second portion of the duodenum containing air fluid. No change and no adjacent inflammatory process. The colon shows extensive uncomplicated sigmoid diverticulosis. No change in appearance from prior examination. The vascular structures show extensive atherosclerotic arterial calcification. Ill-defined soft tissue thickening circumferentially around the proximal superior mesenteric artery.. The diameter at level of this abnormal soft tissue is approximately 2.1 cm in diameter, increased from 06/07/2016 when it measured 1.7 cm in diameter. Ill-defined haziness in the adjacent fat. No adjacent fluid collection. This appearance is entirely new compared to 01/06/2016. Central calcification consistent with atherosclerotic mural calcification and conforming to appearance of the artery in December 2015. The more distal superior mesenteric arteries unremarkable. Other unopacified vessels unremarkable. There are some mildly prominent nodes adjacent to the superior mesenteric artery proximally but measuring up to about 1.1 cm in short axis. The abnormality along the right proximal superior mesenteric artery extends for a distance of about 2.8 cm. There is some generalized haziness and stranding in the subcutaneous fat of the body wall suggesting mild edema. Similar appearance on prior study. Subcutaneous probable inclusion cyst left posterior lumbar region measuring about 1 cm in diameter unchanged. The bony structures show no acute abnormality. IMPRESSION 1. Abnormal appearance of proximal superior mesenteric artery. There is circumferential soft tissue density material around the proximal 2.8 cm of the superior mesenteric artery. Centrally there are vascular calcifications, conforming to atherosclerotic calcifications seen on a scan from December 2015. The diameter of the vessel at level of the abnormal soft tissue density is 2.1 cm transversely, previously 1.7 cm transversely on June 07, 2016. There is some subtle haziness in the fat adjacent to the proximal superior mesenteric artery. There are some small to mildly enlarged adjacent lymph nodes. The appearance of the proximal superior mesenteric artery is nonspecific. The possibility of aneurysmal dilatation could be considered. The possibility of aneurysmal dilatation with some leakage could be considered. There is no hyperdense material to clearly indicate thrombosed products of hemorrhage. Possibility of an unusual inflammatory aneurysm involving superior mesenteric artery could be considered. Less likely in the differential diagnosis but possible given the adjacent mildly enlarged lymph nodes, would be a very atypical manifestation of lymphoproliferative disease. This finding could best be further evaluated with multiphase contrast-enhanced CT or MRI if the patient is a candidate. The possibility of further characterization with CT PET scan could be considered. 2. Extensive atherosclerotic arterial calcifications in the aorta and its branch vessels. 3. There is no evidence of mesenteric ischemia. [facility]. [facility] A Service of [facility] RADIOLOGY TEXT RESULTS PATIENT: VALENTIN ASHLEY LOCATION: C3A 314-01 : 30 UNIT #: [id number] AGE: [address]: Nadeem Sales MD SEX: F ORDER DR: 4. Extensive uncomplicated sigmoid diverticulosis. Similar in appearance to prior examination. 5. There is a small volume of free fluid in the pelvis unchanged from prior examination. Etiology unclear. This is not a drainable fluid collection. 6. Appendix not identified but no right lower quadrant or pericecal inflammatory change is seen. 7. Small right pleural effusion decreased from prior study. Moderate left pleural effusion stable. Subjacent atelectasis. Stable. 8. Status post cholecystectomy. No biliary obstruction suggested. 9. Extensive surgical clips upper abdomen unchanged. 10. Duodenal diverticulum unchanged. 11. Body wall edema. Stable. Dictated by... Michael Montano M.D. THIS IS AN ELECTRONICALLY VERIFIED REPORT Michael Montano M.D. at 06/13/2016 5:52 PM Bina TD: 06/11/2016 13:26 JOB #: [id number] MEDICAL IMAGING REPORT COPY
--- NOTE | ~2016-06-11 | CR72 ---
[facility] A Service of [facility] & [facility] RADIOLOGY TEXT RESULTS PATIENT: VALENTIN ASHLEY LOCATION: [facility] : 30 UNIT #: [id number] AGE: [address]: Penelope Herrera MD SEX: F ORDER DR: [id number] [facility] [address] [place], [place] [address] [id number] E MR#: [id number] Acc #: [id number] NAME: VALENTIN ASHLEY : 1930 SEX: F STUDY DATE/TIME: 06/11/2016 11:03 UNIT: [facility] ROOM: STUDY DESCRIPTION: CR Chest Single View Portable Attending Physician: Penelope Herrera M.D. Ordering Physician: Penelope Herrera M.D. Primary Care Physician: Louann Young M.D. MEDICAL IMAGING REPORT This report is preliminary unless electronic signature is present EXAM Portable chest 06/11/2016 INDICATION Left-sided pain for 4 days. COMPARISON 06/07. FINDINGS A portable view of the chest was obtained. The heart size is upper limits of normal. The vascularity is normal and the lungs are clear. The central venous catheter is stable. There are sternotomy wires present. IMPRESSION No change. No active disease. Dictated by... Juanito Richard M.D. THIS IS AN ELECTRONICALLY VERIFIED REPORT Juanito Richard M.D. at 06/11/2016 2:29 PM CAESAR/jace TD: 06/11/2016 14:07 JOB #: [id number] MEDICAL IMAGING REPORT COPY
--- NOTE | ~2016-06-11 | CR63 ---
[facility] A Service of [facility] & [facility] RADIOLOGY TEXT RESULTS PATIENT: VALENTIN ASHLEY LOCATION: [facility] 314-01 : 30 UNIT #: [id number] AGE: [address]: Nadeem Sales MD SEX: F ORDER DR: [id number] [facility] [address] [place], [place] [address] [id number] I MR#: [id number] Acc #: [id number] NAME: VALENTIN ASHLEY : 1930 SEX: F STUDY DATE/TIME: 06/18/2016 17:50 UNIT: A U ROOM: [facility] STUDY DESCRIPTION: CR Chest 2 View Attending Physician: Nadeem Sales M.D. Ordering Physician: Nadeem Sales M.D. Primary Care Physician: Louann Young M.D. MEDICAL IMAGING REPORT This report is preliminary unless electronic signature is present EXAM AP and lateral chest HISTORY Cough, shortness of air and abdomen pain for 10 days. FINDINGS 2 views of the chest demonstrate the cardiac size is near the upper limits of normal. Normal pulmonary vascularity. Sternotomy with mediastinal clips and markers. Mild pleural thickening in the lung apices. Mild linear atelectasis in the left base. Mild hypertrophic spurring mid and lower thoracic spine. Prior CABG. IMPRESSION 1. New mild linear atelectasis in the left base compared to 06/11/2016. 2. Remainder of the lungs are clear. No pleural effusions. Dictated by... Brayden Sullivan M.D. THIS IS AN ELECTRONICALLY VERIFIED REPORT Brayden Sullivan M.D. at 06/19/2016 3:31 PM RYLAN/bay TD: 06/19/2016 08:42 JOB #: [id number] MEDICAL IMAGING REPORT COPY
--- NOTE | ~2016-06-11 | CO ---
Unit #: [id number] #: [id number] Patient: VALENTIN ASHLEY [id number] [facility]. [place], [place] [address] [id number] I MR#: [id number] NAME: VALENTIN ASHLEY ROOM: 314 Age: 85 Sex: F Admission Date: 06/11/2016 : 1930 Attending Physician: Tatiana Villegas M.D. Primary Care Physician: Louann Young M.D. Consultation Date: 06/11/2016 CONSULTATION REPORT REQUESTING PHYSICIAN Dr. Case Warren in the emergency room. REASON FOR CONSULTATION Abdominal pain. HISTORY OF PRESENT ILLNESS This is an 85-year-old female with many medical problems to include paroxysmal atrial fibrillation not on anticoagulation, end-stage renal disease, COPD, history of CABG, hypertension. She states that she has had abdominal pain for the past 2 weeks or so. She has some abdominal pain and was seen in the emergency room about 3 to 4 days ago, and she had a CT scan without contrast, and was ultimately discharged. She recently had a hospitalization back in 03/2016 for antibiotic resistant urinary tract infection. She states that she has been having this pain for the past 2 weeks, and with resultant poor appetite. She reports nausea and vomiting, unable to specify any further detail about these episodes. She denies any diarrhea. She is unable to state whether or not she has postprandial abdominal pain. She does not seem to have early satiety. She is unable to comment whether or not she has had weight loss over the past year or so. She does have several other vascular related issues. She has reported history of peripheral vascular disease. She has end-stage renal disease, who dialyzes on Saturday, Saturday, Saturday. She has had a tunneled dialysis catheter, which is her current round of dialysis. She did have a left brachiocephalic AV fistula placed by Dr. Hui Sheffield in 12/2015. She states that they were trying to access her left fistula recently, except there were some issues, and she has been dialyzing through a tunneled dialysis catheter since then. She also notes that she is supposed to go back for an attempt on the fistula access placement today. She reports no left-hand pain, numbness, or tingling. PAST MEDICAL HISTORY Include anemia; paroxysmal atrial fibrillation, on anticoagulation; end-stage renal disease, on dialysis Saturday, Saturday, and Saturday; COPD; hypertension; coronary artery disease; obstructive sleep apnea; hypothyroidism; GERD; hyperlipidemia; peripheral vascular disease, gout; depression; dementia. PAST SURGICAL HISTORY Include a CABG x2 in 2004, cholecystectomy, hysterectomy, shoulder and elbow surgery. Unit #: [id number] #: [id number] Patient: VALENTIN ASHLEY PHYSICAL EXAMINATION VITAL SIGNS: Temperature 97.5, heart rate 77, blood pressure is 166/41, respirations 16, 84% on 4 L. GENERAL: No acute distress. HEART: Heart rate is irregularly irregular. ABDOMEN: Soft, minimally tender to epigastrium, nondistended. 2+ femoral pulses. She has a healed midline incision. DIAGNOSTIC STUDIES LABORATORY RESULTS: WBC 8.4, hematocrit 33.5, platelets 176. Sodium 135, potassium 3.5, chloride 98, CO2 26, BUN 17, creatinine 2.0, glucose 83. AST 27, ALT 12, alkaline phosphatase 80, total bilirubin 1.3, albumin 3.3, lactate 1.3, BNP 1000. UA is negative. IMAGING STUDIES: CT noncontrast scan demonstrates a 2 cm inflammatory stranding around the superior mesenteric artery, as seen on the 01/06/2016. CT scan, however somewhat larger in size, in which it measured 1.7 cm back then. FAMILY HISTORY Denies any known bleeding disorders, clotting disorders, or aneurysms. SOCIAL HISTORY Denies any smoking. Denies any alcohol use. Lives alone in her apartment, but has a daughter nearby. ASSESSMENT 1. An 85-year-old female with question of superior mesenteric artery aneurysm, inflammatory aneurysm. I do not believe it is actively ruptured, she is very stable, and its presence has been seen for the last 4 days. I do wonder it may be a thrombosed aneurysm with subsequent inflammatory straining. She does not, however, have any evidence of acute mesenteric ischemia based on CT scan or symptoms. I have ordered a CTA to get better evaluation of her SMA anatomy. If it is an inflammatory aneurysm, it is in a difficult location for repair. Likely will require an aorto-mesenteric or iliac to SMA bypass, and to do so in this area with stranding and inflammatory tissue, as well as given her aortic calcification, as well as her multiple other comorbidities, needless to say, such an operation would be very high risk for morbidity and mortality. 2. Regarding her end-stage renal disease, if admitted she should have a Nephrology consult please and access can be obtained from the left arm. On examination, her left fistula has a strong thrill, appears well dilated, and I think she would be able to use. 3. She has a history of left carotid atherosclerosis based on duplex imaging. MEDICATIONS From before include Proventil, Pulmicort, Advair, Celexa, Coreg, Aricept, Lasix, Lipitor, hydralazine, Zestril, allopurinol, multivitamin, Protonix, PhosLo, levothyroxine, and Imdur. She is on Lipitor for statin therapy; however, she does not appear to be on aspirin for antiplatelet therapy, may be result of a history of thrombocytopenia that is noted, or concern for bleeding. Regardless, she likely should be on at least aspirin 81 mg daily. Disposition can be pending findings of her CT angiogram. Unit #: [id number] #: [id number] Patient: VALENTIN ASHLEY Dictated by... Augustus Parmar TD: 06/12/2016 04:07 JOB #: [id number] CONSULTATION REPORT X X CONSULTATION REPORT
[2016-06-11 09:20] LABS: BASOPHIL# 0.1 X10e3 (0-0.3); BASOPHIL% 0.8 % (0-2.5); EOSINOPHIL# 0.3 X10e3 (0-0.7); HEMATOCRIT 33.3 % (35.0-45.0); LYMPHOCYTE# 1.7 X10e3 (1.0-3.5); LYMPHOCYTE% 20.1 % (17.0-45.0); MEAN CORPUSCULAR HGB CONC 32.9 g/dL (30-36); MEAN PLATELET VOLUME 10.2 FL (6.5-11.5); MONOCYTE# 0.7 X10e3 (0-1.0); MONOCYTE% 8.8 % (3.0-12.0); NEUTROPHIL# 5.7 X10e3 (1.5-7.1); NEUTROPHIL% 67.3 % (40-75); RED BLOOD COUNT 3.92 X10e (3.90-5.30); RED CELL DISTRIBUTION WIDTH 15.9 % (11.0-15.5); WHITE BLOOD COUNT 8.4 X10e3 (4.0-10.5)
[2016-06-11 09:41] LABS: DIFF IND NO; PLATELET COUNT 176 X10e3 (140-420)
[2016-06-11 09:45] LABS: ALBUMIN SERUM 3.3 g/dL (3.5-5.0); BILIRUBIN, DIRECT 0.3 mg/dL (0.0-0.2); BILIRUBIN,TOTAL 1.3 mg/dL (0.2-2.0); BUN/CREATININE RATIO 8.5; CALCIUM SERUM 9.3 mg/dL (8.4-10.2); GLOM FILT RATE Estimated 25.2 mL/min (>60); POTASSIUM 3.5 mmol/L (3.5-5.1); PROTEIN TOTAL SERUM 6.5 g/dL (6.0-8.3)
[2016-06-11 10:45] LABS: URINE SOURCE CLEAN CATCH
[2016-06-11 11:04] LABS: URINE APPEARANCE CLEAR; URINE BILIRUBIN NEG (NEG); URINE BLOOD NEG (NEG); URINE COLOR YELLOW; URINE GLUCOSE NEG (NEG); URINE KETONE NEG (NEG); URINE LEUKOCYTE ESTERASE NEG (NEG); URINE NITRATE NEG (NEG); URINE PROTEIN 2+ (NEG)
[2016-06-11 11:08] LABS: URBCS1 AUWI 0-2 /[HPF] (0-2); URINE BACTERIA AUWI NEG (NEGATIVE); URINE SQUAMOUS EPITHELIAL CELL NONE SEEN /[HPF]; UWBCS1 AUWI 0-2 (0-5)
[2016-06-11 11:13] LABS: CULTURE INDICATED? NO
[2016-06-11 11:16] LABS: INR 1.1; PARTIAL THROMBOPLASTIN TIME 30.2 SECONDS (23.5-31.3)
[2016-06-11 11:22] LABS: POC - CKMB <1.0 ng/mL (0.0-7.9); POC - TROPONIN <0.05 ng/mL (<=0.05)
[~2016-06-11 12:31] MED LIST: ACETAMINOPHEN PO; ACETAMINOPHEN650 M1 PO; ADVAIR 100-501 EAC1 INH; ADVAIR 250-501 EAC1 IH; ADVAIR 250-501 EACH IH; ADVAIR 250-501 EACH INH; ADVAIR 2501 DISK W/1 INH; ADVAIR 2501 DISK W/D PO; ALBUTEROL MININEB INH; ALBUTEROL MININEB NEB; ALBUTEROL17 GM INH; ALDACTONE25 MG PO; ALLERGY10 M1 PO; ALLERY PO; ALPRAZOLAM PO; ALTACE; APRESOLINE PO; ARANESP25 MCG/ML; ARICEPT PO; ARICEPT5 M1 PO; ASPIRIN PO; ASPIRIN81 M1 PO; ASPIRIN81 M2 PO; ASPIRIN81 MG PO; ATORVASTATIN CA10 MG PO; BENADRILINA25 MG PO; BUDESONIDE0.5 MG/2 M IH; BUDESONIDE0.5 MG/2 M INH; BYSTOLIC10 MG PO; BYSTOLIC20 MG PO; CALAN PO; CALCITRIOL0.25 MCG PO; CALCIUM CARBON650 MG PO; CALPHRON667 MG PO; CARDIZEM CD PO; CARDIZEM30 M1 PO; CARDIZEM30 M2 PO; CARDIZEM30 MG PO; CARVEDILOL3.125 MG PO; CATAPRES0.1 MG PO; CELEXA PO; CELEXA10 MG PO; CERTAGEN PO; CITALOPRAM HBR10 MG PO; CLARITIN10 M2 PO; CLOPIDOGREL75 MG PO; COLACE PO; COMBIVENT14.7 GM INH; COREG6.25 MG PO; COUMADIN5 MG PO; DIABETA2.5 MG PO; DILTIAZEM HCL30 MG PO; DONEPEZIL HCL10 MG PO; DUONEB 2.5-0.5 M3 ML NEB; EFFER-K 20 MEQ20 MEQ PO; FERROUS GL324 ( 38 ) PO; FERROUS GLUCON324 MG PO; FERROUS SULFATE1 TAB PO; FISH OIL 1,001000 MG PO; FISH OIL300 MG PO; FISH OIL500 MG PO; FUROSEMIDE40 MG PO; GLUCOTROL PO; GLYBURIDE2.5 M1 PO; GUAIFENESIN LA600 M1 PO; GUAIFENESIN PO; GUAIFENESIN600 MG PO; HEMOCYTE324 MG PO; HYDRALAZINE HC100 MG PO; IMDUR-ER60 M1 PO; IMDUR-ER60 M2 PO; IMDUR-ER60 MG PO; IRON PO; IRON1 TA1 PO; JANUVIA50 MG PO; K-DUR20 ME1 PO; K-DUR20 ME2 PO; LASIX PO; LASIX20 MG PO; LEVAQUIN750 M1 PO; LEVAQUIN750 MG PO; LEVOTHYROXINE100 MC1 PO; LEVOTHYROXINE100 MCG PO; LEVOXYL100 MC1 PO; LISINOPRIL5 MG PO; LO-DOSE ASPIRIN81 M1 PO; LODRANE 121 TAB.SR . PO; LOPRESSOR PO; LOW DOSE ASPIRI81 M1 PO; MEVACOR PO; MINOXIDIL PO; MINOXIDIL2.5 MG PO; MULTI VITAMIN1 EACH PO; MULTI-DAY VITAM1 TAB PO; MULTI-VITAMIN-1 EACH PO; MULTI-VITAMIN1 EAC1 PO; MULTIVITAMIN1 UDCAP PO; NITROLINGUAL SPRAY SL; NORCO 5/325 TAB1 TAB PO; NORVASC PO; OMEPRAZOLE40 MG PO; ONE DAILY MUL400 MCG PO; PANTOPRAZOLE SO40 MG PO; PAXIL PO; PLAVIX PO; POTASSIUM CHLO20 ME1 PO; PRAVACHOL PO; PRAVASTATIN SOD40 MG PO; PREDNISONE PO; PREDNISONE10 MG/DOSE PO; PREVACID PO; PRILOSEC40 MG PO; PROTONIX PO; PROVENTIL0.83 MG/ML IH; PROVENTIL4 MG PO; PULMICORT0.25 MG/2 INH; PULMICORT0.5 MG/2 M IH; PULMICORT0.5 MG/2 M INH; STOOL SOFTENER1 EAC1 PO; STOOL SOFTENER100 M1 PO; STOOL SOFTENER50 MG PO; STOOL SOFTNER; SYMBICORT INH; SYNTHROID; SYNTHROID PO; SYNTHROID0.1 MG PO; TOPROL XL; VIBRAMYCIN100 M1 PO; VITAMIN B-121000 MCG PO; VOSPIRE ER8 MG PO; ZANTAC PO; ZESTORETIC 20/11 TAB PO; ZOLOFT; ZOLOFT PO; ZYLOPRIM100 MG PO; ZYVOX600 MG PO; [UNRECOGNIZED DRUG - OTHER] PO
[2016-06-11] MEDS ORDERED: LISINOPRIL10 MG PO (17:30)
[2016-06-11] MEDS ORDERED: CITALOPRAM HBR10 MG PO (17:31)
[2016-06-11] MEDS ORDERED: ALLERGY TAB PO (17:32)
[2016-06-11] MEDS ORDERED: ISOSORBIDE MONO60 M1 PO (17:32)
[2016-06-11] MEDS ORDERED: PROTONIX PO (17:33)
[2016-06-11] MEDS ORDERED: APRESOLINE PO (17:33)
[2016-06-11] MEDS ORDERED: ZYLOPRIM100 MG PO (17:34)
[2016-06-11] MEDS ORDERED: DONEPEZIL HCL10 MG PO (17:34)
[2016-06-11] MEDS ORDERED: ATORVASTATIN CA10 MG PO (17:35)
[2016-06-11] MEDS ORDERED: LEVO-T100 MCG PO (17:35)
[2016-06-11] MEDS ORDERED: CARVEDILOL6.25 MG PO (17:36)
[2016-06-11] MEDS ORDERED: ADVAIR 250-501 EAC1 INH (17:39)
[2016-06-11] MEDS ORDERED: ALBUTEROL17 GM INH (17:41)
[2016-06-11 17:52] LABS: CK TOTAL 26 IU/L (26-140)
[2016-06-11 23:39] LABS: CK TOTAL 21 IU/L (26-140)
[2016-06-12 05:53] LABS: HEMOGLOBIN 9.4 gm/dL (12.0-16.0); MEAN CELL VOLUME 85.7 FL (83-96); MEAN CORPUSCULAR HEMOGLOBIN 27.8 PG (28-34); MEAN CORPUSCULAR HGB CONC 32.4 g/dL (30-36); MEAN PLATELET VOLUME 9.3 FL (6.5-11.5); RED BLOOD COUNT 3.39 X10e (3.90-5.30); RED CELL DISTRIBUTION WIDTH 15.9 % (11.0-15.5); WHITE BLOOD COUNT 5.9 X10e3 (4.0-10.5)
[2016-06-12 06:44] LABS: CK TOTAL 20 IU/L (26-140)
[2016-06-12 06:49] LABS: ALBUMIN SERUM 2.7 g/dL (3.5-5.0); CALCIUM SERUM 8.7 mg/dL (8.4-10.2); GLOM FILT RATE Estimated 25.2 mL/min (>60); MAGNESIUM 1.7 mg/dL (1.6-3.0); PHOSPHOROUS 4.4 mg/dL (2.5-4.6); POTASSIUM 3.3 mmol/L (3.5-5.1); PROTEIN TOTAL SERUM 5.1 g/dL (6.0-8.3)
[2016-06-13 05:58] LABS: HEMATOCRIT 27.1 % (35.0-45.0); MEAN CELL VOLUME 85.1 FL (83-96); MEAN CORPUSCULAR HEMOGLOBIN 28.2 PG (28-34); MEAN CORPUSCULAR HGB CONC 33.1 g/dL (30-36); MEAN PLATELET VOLUME 9.4 FL (6.5-11.5); RED BLOOD COUNT 3.19 X10e (3.90-5.30); WHITE BLOOD COUNT 4.9 X10e3 (4.0-10.5)
[2016-06-13 06:55] LABS: CALCIUM SERUM 8.3 mg/dL (8.4-10.2); CREATININE SERUM 1.8 mg/dL (0.6-1.4); GLOM FILT RATE Estimated 28.4 mL/min (>60); POTASSIUM 3.6 mmol/L (3.5-5.1)
[2016-06-14 07:38] LABS: HEMATOCRIT 29.7 % (35.0-45.0); HEMOGLOBIN 9.6 gm/dL (12.0-16.0); MEAN CELL VOLUME 85.8 FL (83-96); MEAN CORPUSCULAR HEMOGLOBIN 27.7 PG (28-34); MEAN CORPUSCULAR HGB CONC 32.3 g/dL (30-36); MEAN PLATELET VOLUME 9.2 FL (6.5-11.5); RED BLOOD COUNT 3.46 X10e (3.90-5.30); RED CELL DISTRIBUTION WIDTH 15.6 % (11.0-15.5); WHITE BLOOD COUNT 3.6 X10e3 (4.0-10.5)
[2016-06-14 08:05] LABS: BUN/CREATININE RATIO 5.17; CALCIUM SERUM 8.8 mg/dL (8.4-10.2); CREATININE SERUM 2.9 mg/dL (0.6-1.4); GLOM FILT RATE Estimated 16.4 mL/min (>60); POTASSIUM 3.7 mmol/L (3.5-5.1)
[2016-06-14 13:33] LABS: URINE CREATININE 184.8 mg/dL
[2016-06-14 13:35] LABS: BODY SURFACE AREA 1.63
[2016-06-15 06:11] LABS: HEMATOCRIT 28.3 % (35.0-45.0); HEMOGLOBIN 9.3 gm/dL (12.0-16.0); MEAN CELL VOLUME 84.7 FL (83-96); MEAN CORPUSCULAR HEMOGLOBIN 27.8 PG (28-34); MEAN CORPUSCULAR HGB CONC 32.9 g/dL (30-36); MEAN PLATELET VOLUME 9.2 FL (6.5-11.5); RED BLOOD COUNT 3.35 X10e (3.90-5.30); RED CELL DISTRIBUTION WIDTH 16.1 % (11.0-15.5)
[2016-06-15 06:48] LABS: BILIRUBIN,TOTAL 0.9 mg/dL (0.2-2.0); BUN/CREATININE RATIO 6.94; CALCIUM SERUM 8.9 mg/dL (8.4-10.2); CREATININE SERUM 3.6 mg/dL (0.6-1.4); GLOM FILT RATE Estimated 12.8 mL/min (>60); PROTEIN TOTAL SERUM 5.9 g/dL (6.0-8.3)
[2016-06-15 13:57] LABS: ANA SCREEN Negative (Negative); MYELOPEROXIDASE AB (PNL) <1.0 AI (<1.0); PROTEINASE-3 AB (PNL) <1.0 AI (<1.0)
[2016-06-15 20:48] LABS: SPE A1GLOB (PNL) 0.5 g/dL (0.2-0.3); SPE A2GLOB (PNL) 0.9 g/dL (0.5-0.9); SPE ALB (PNL) 2.7 g/dL (3.8-4.8); SPE BETA 1 GLOBULIN 0.2 g/dL (0.4-0.6); SPE BETA 2 GLOBULIN 0.2 g/dL (0.2-0.5); SPE GAMMA (PNL) 0.7 g/dL (0.8-1.7); SPETP (PNL) 5.2 g/dL (6.1-8.1)
[2016-06-16 07:26] LABS: HEMATOCRIT 30.4 % (35.0-45.0); MEAN CORPUSCULAR HEMOGLOBIN 27.9 PG (28-34); MEAN CORPUSCULAR HGB CONC 32.8 g/dL (30-36); MEAN PLATELET VOLUME 9.1 FL (6.5-11.5); RED BLOOD COUNT 3.58 X10e (3.90-5.30); RED CELL DISTRIBUTION WIDTH 15.9 % (11.0-15.5); WHITE BLOOD COUNT 2.7 X10e3 (4.0-10.5)
[2016-06-16 08:01] LABS: BUN/CREATININE RATIO 8.57; CALCIUM SERUM 9.1 mg/dL (8.4-10.2); CREATININE SERUM 2.8 mg/dL (0.6-1.4); GLOM FILT RATE Estimated 17.1 mL/min (>60); POTASSIUM 4.4 mmol/L (3.5-5.1)
[2016-06-17 05:09] LABS: HEMATOCRIT 32.6 % (35.0-45.0); HEMOGLOBIN 10.4 gm/dL (12.0-16.0); MEAN CELL VOLUME 84.6 FL (83-96); MEAN CORPUSCULAR HEMOGLOBIN 26.9 PG (28-34); MEAN CORPUSCULAR HGB CONC 31.8 g/dL (30-36); MEAN PLATELET VOLUME 8.9 FL (6.5-11.5); RED BLOOD COUNT 3.85 X10e (3.90-5.30); RED CELL DISTRIBUTION WIDTH 15.8 % (11.0-15.5)
[2016-06-17 05:13] LABS: WHITE BLOOD COUNT 6.4 X10e3 (4.0-10.5)
[2016-06-17 06:36] LABS: BUN/CREATININE RATIO 12.64; CALCIUM SERUM 9.1 mg/dL (8.4-10.2); CREATININE SERUM 3.4 mg/dL (0.6-1.4); GLOM FILT RATE Estimated 13.6 mL/min (>60); POTASSIUM 4.1 mmol/L (3.5-5.1)
[2016-06-18 07:43] LABS: BASOPHIL% 0.2 % (0-2.5); HEMATOCRIT 32.4 % (35.0-45.0); HEMOGLOBIN 10.5 gm/dL (12.0-16.0); LYMPHOCYTE# 0.7 X10e3 (1.0-3.5); MEAN CELL VOLUME 84.7 FL (83-96); MEAN CORPUSCULAR HEMOGLOBIN 27.6 PG (28-34); MEAN CORPUSCULAR HGB CONC 32.5 g/dL (30-36); MEAN PLATELET VOLUME 8.8 FL (6.5-11.5); MONOCYTE# 0.5 X10e3 (0-1.0); MONOCYTE% 7.5 % (3.0-12.0); NEUTROPHIL# 5.4 X10e3 (1.5-7.1); NEUTROPHIL% 82.3 % (40-75); PLATELET COUNT 164 X10e3 (140-420); RED BLOOD COUNT 3.83 X10e (3.90-5.30); RED CELL DISTRIBUTION WIDTH 15.8 % (11.0-15.5); WHITE BLOOD COUNT 6.5 X10e3 (4.0-10.5)
[2016-06-18 07:50] LABS: DIFF IND NO
[2016-06-18 08:04] LABS: BUN/CREATININE RATIO 18.21; CALCIUM SERUM 9.1 mg/dL (8.4-10.2); CREATININE SERUM 2.8 mg/dL (0.6-1.4); GLOM FILT RATE Estimated 17.1 mL/min (>60); POTASSIUM 3.8 mmol/L (3.5-5.1)
[2016-06-20 05:16] LABS: HEMATOCRIT 33.4 % (35.0-45.0); MEAN CORPUSCULAR HEMOGLOBIN 27.6 PG (28-34); MEAN CORPUSCULAR HGB CONC 32.8 g/dL (30-36); MEAN PLATELET VOLUME 9.4 FL (6.5-11.5); RED BLOOD COUNT 3.97 X10e (3.90-5.30); RED CELL DISTRIBUTION WIDTH 16.1 % (11.0-15.5); WHITE BLOOD COUNT 4.8 X10e3 (4.0-10.5)
[2016-06-20 07:03] LABS: BUN/CREATININE RATIO 19.25; CALCIUM SERUM 9.4 mg/dL (8.4-10.2); CREATININE SERUM 2.7 mg/dL (0.6-1.4); GLOM FILT RATE Estimated 17.8 mL/min (>60); POTASSIUM 4.6 mmol/L (3.5-5.1)
[2016-06-21 07:11] LABS: HEMATOCRIT 35.6 % (35.0-45.0); HEMOGLOBIN 11.3 gm/dL (12.0-16.0); MEAN CELL VOLUME 84.5 FL (83-96); MEAN CORPUSCULAR HEMOGLOBIN 26.9 PG (28-34); MEAN CORPUSCULAR HGB CONC 31.8 g/dL (30-36); MEAN PLATELET VOLUME 9.2 FL (6.5-11.5); RED BLOOD COUNT 4.22 X10e (3.90-5.30); RED CELL DISTRIBUTION WIDTH 16.7 % (11.0-15.5); WHITE BLOOD COUNT 6.1 X10e3 (4.0-10.5)
[2016-06-21 07:27] LABS: BUN/CREATININE RATIO 14.07; CREATININE SERUM 2.7 mg/dL (0.6-1.4); GLOM FILT RATE Estimated 17.8 mL/min (>60); POTASSIUM 4.1 mmol/L (3.5-5.1)
[2016-06-22 06:14] LABS: BUN/CREATININE RATIO 17.66; CALCIUM SERUM 8.7 mg/dL (8.4-10.2); GLOM FILT RATE Estimated 15.8 mL/min (>60); POTASSIUM 3.9 mmol/L (3.5-5.1)
[2016-06-22 06:47] LABS: HEMATOCRIT 34.1 % (35.0-45.0); HEMOGLOBIN 10.8 gm/dL (12.0-16.0); MEAN CELL VOLUME 83.9 FL (83-96); MEAN CORPUSCULAR HEMOGLOBIN 26.7 PG (28-34); MEAN CORPUSCULAR HGB CONC 31.8 g/dL (30-36); RED BLOOD COUNT 4.06 X10e (3.90-5.30); RED CELL DISTRIBUTION WIDTH 16.5 % (11.0-15.5); WHITE BLOOD COUNT 7.7 X10e3 (4.0-10.5)
== END 2016-06-22 15:29 | DRG 545 ==
LOC: CED 12:31 → CEDOF 16:25 → C3A PCU 06-15 16:00
PROVIDERS: Emergency Medicine; Family Medicine; Internal Medicine; Internal Medicine Hematology & Oncology; Internal Medicine Nephrology
PROC: 5A1D60Z (ICD-10-PCS; principal; 2016-06-15)
PROC: B24BYZZ Ultrasonography of Heart with Aorta using Other Contrast (ICD-10-PCS; 2016-06-19)
DX: I77.6 Arteritis, unspecified (principal); N18.6 End stage renal disease; A41.81 Sepsis due to Enterococcus; I13.2 Hypertensive heart and chronic kidney disease with heart failure and with stage 5 chronic kidney disease, or end stage renal disease; I47.2 Ventricular tachycardia; J96.10 Chronic respiratory failure, unspecified whether with hypoxia or hypercapnia; I08.3 Combined rheumatic disorders of mitral, aortic and tricuspid valves; T80.29XA Infection following other infusion, transfusion and therapeutic injection, initial encounter; I50.9 Heart failure, unspecified; Z99.2 Dependence on renal dialysis; E78.5 Hyperlipidemia, unspecified; I73.9 Peripheral vascular disease, unspecified; D64.89 Other specified anemias; I25.10 Atherosclerotic heart disease of native coronary artery without angina pectoris; Z95.1 Presence of aortocoronary bypass graft; M10.9 Gout, unspecified; F03.90 Unspecified dementia, unspecified severity, without behavioral disturbance, psychotic disturbance, mood disturbance, and anxiety; J44.9 Chronic obstructive pulmonary disease, unspecified; Z90.49 Acquired absence of other specified parts of digestive tract; Z90.710 Acquired absence of both cervix and uterus; I48.0 Paroxysmal atrial fibrillation; Z66 Do not resuscitate; I65.23 Occlusion and stenosis of bilateral carotid arteries; G47.33 Obstructive sleep apnea (adult) (pediatric); I25.2 Old myocardial infarction; R59.1 Generalized enlarged lymph nodes
CPT/HCPCS: 36415; 71010; 71020; 72170; 74176; 74177; 80048; 80053; 80076; 80170; 80202; 81003; 82150; 82550; 82553; 82575; 82947; 83605; 83615; 83690; 83735; 83880; 84100; 84165; 84484; 85025; 85027; 85610; 85652; 85730; 86021; 86038; 86039; 86140; 87040; 87077; 87186; 93005; 93306; 94640; 94664; 94760; 96361; 96374; 96375; 97110; 97116; 97163; 97166; 97530; 99285; G8978-GP; G8979-GP; G8987-GO; G8988-GO; J0360; J0878; J1170; J1580; J1644; J1650; J2405; J2765; J2920; J3370; Q4081; Q9967

== ENCOUNTER 2016-06-27 15:17 | Inpatient (IN) | payer MEDICARE, BC ==
--- NOTE | ~2016-06-27 | EKG ---
PATIENT: VALENTIN ASHLEY UNIT #: [id number] Ventricular Rate: 80 BPM Atrial Rate: 300 BPM QRS Duration: 84 ms Q-T Interval: 412 ms QTC Calculation(Bezet): 475 ms Calculated R [place]: 27 degrees Calculated T [place]: 120 degrees Diagnosis Line: Atrial fibrillation Diagnosis Line: Poor R wave progression questionable lead position Diagnosis Line: or body habitus ST abnormality, possible digitalis Diagnosis Line: effect Diagnosis Line: Abnormal ECG Diagnosis Line: When compared with ECG of 20-JUN-2016 10:42, Diagnosis Line: Serial changes of evolving Septal infarct Present Diagnosis Line: Confirmed by JO-ANN MACK MD ([id number]) on 06/28/2016 Diagnosis Line: 5:43:37 PM INTERPRETING MD: MARTINA DIAZ
--- NOTE | ~2016-06-27 | OR ---
Unit #: [id number] #: [id number] Patient: VALENTIN ASHLEY [id number] [facility]. [place], [place] [address] [id number] I MR#: [id number] NAME: VALENTIN ASHLEY ROOM: 329 Date of Procedure: 06/18/2016 Admission Date: 06/29/2016 Surgeon: Aguila Neri M.D. : 1930 Attending Physician: Nadeem Sales M.D. Primary Care Physician: Louann Young M.D. OPERATIVE REPORT PROCEDURE PERFORMED Removal of tunneled dialysis catheter. PREOPERATIVE DIAGNOSIS Acute renal injury. POSTOPERATIVE DIAGNOSIS Acute renal injury. [employer] Simón Mack, nurse practitioner. INDICATIONS FOR PROCEDURE This is an 85-year-old female, who had acute renal injury. She had a tunneled dialysis catheter placed and received a dialysis session, but now has had return of renal function. We were asked by the Nephrology service to remove a tunneled dialysis catheter, as she no longer has need for this catheter. We talked to the patient about the risks and benefits of the procedure. The risks of procedure include bleeding, line fracture. The benefit of the procedure would be removal of tunneled dialysis catheter and prevention of line infection. The patient expressed understanding and elected to proceed. DESCRIPTION OF PROCEDURE The patient's right neck and chest were prepped and draped in sterile fashion. The patient was given 1% lidocaine at the exit site, and along the length of the tunnel. The cuff was palpated close to the exit site. Using scissors, we dissected along the length of the tunnel to free up the cuff. Manual pressure was then applied and gentle traction was pulled back on the catheter, and removed easily. The exit site was then covered with 4x4 gauze and Tegaderm dressing. The patient tolerated the procedure well. Dictated by... Augustus Parmar/ananya TD: 07/02/2016 07:57 JOB #: [id number] Unit #: [id number] #: [id number] Patient: VALENTIN ASHLEY OPERATIVE REPORT Page 1 of 1 X X PROCEDURE OPERATIVE NOTE
--- NOTE | ~2016-06-27 | DS ---
Unit #: [id number] #: [id number] Patient: VALENTIN ASHLEY [id number] [address] [address] [id number] I MR#: [id number] NAME: VALENTIN ASHLEY ROOM: 329 Age: 85 Sex: F Admission Date: 06/29/2016 : 1930 Discharge Date: 07/01/2016 Attending Physician: Nadeem Sales M.D. Primary Care Physician: Louann Young M.D. DISCHARGE SUMMARY PRIMARY DIAGNOSIS Acute on chronic abdominal pain secondary to chronic superior mesenteric artery vasculitis. SECONDARY DIAGNOSES 1. End stage renal disease. 2. Enterococcal bacteremia. 3. Chronic anemia. 4. Paroxysmal atrial fibrillation. 5. History of congestive heart failure, not otherwise specified. 6. Valvular heart disease with aortic regurgitation and mitral regurgitation. 7. Dyslipidemia. 8. Peripheral vascular disease. 9. Nonsustained ventricular tachycardia. 10. Chronic obstructive pulmonary disease. 11. Obstructive sleep apnea. 12. Coronary artery disease. 13. Mild dementia. 14. Gout. 15. Chronic thrombocytopenia. HOSPITAL COURSE The patient was admitted to the hospital with worsening abdominal pain. She was already in the hospital for almost 2 weeks earlier this month and ultimately, the patient and family decided to initiate comfort measures as her quality of life is diminished significantly due to the unrelenting symptoms from her superior mesenteric artery vasculitis. She was placed on comfort measures and she is going to be discharged on the day of this dictation to inpatient hospice. Her dialysis has been stopped and she has been transitioned to comfort medications for issues with anxiety, agitation, nausea, and abdominal pain. DISCHARGE DISPOSITION To inpatient hospice. DISCHARGE STATUS Terminal. DISCHARGE ACTIVITY Bedrest. DISCHARGE DIET Unit #: [id number] #: [id number] Patient: VALENTIN ASHLEY Unrestricted. DISCHARGE MEDICATIONS None at this time. Medications will be resumed in non-IV form at the inpatient hospice. DISCHARGE FOLLOWUP None. Dictated by... Antony Price M.D. CHRISTA/ananya TD: 06/30/2016 22:55 JOB #: [id number] DISCHARGE SUMMARY X Antony Price MD X DISCHARGE SUMMARY
--- NOTE | ~2016-06-27 | CT4 ---
[facility] A Service of [facility] RADIOLOGY TEXT RESULTS PATIENT: VALENTIN ASHLEY LOCATION: C3A 329-01 : 30 UNIT #: [id number] AGE: [address]: Nadeem Sales MD SEX: F ORDER DR: [id number] [facility] [address] [place], [place] [address] [id number] I MR#: [id number] Acc #: [id number] NAME: VALENTIN ASHLEY : 1930 SEX: F STUDY DATE/TIME: 06/27/2016 14:31 UNIT: CEDOF ROOM: [id number] STUDY DESCRIPTION: CT Abd and Pelv Wo Cont Attending Physician: Tatiana Villegas M.D. Ordering Physician: Miguelito Drake M.D. Primary Care Physician: Louann Young M.D. MEDICAL IMAGING REPORT This report is preliminary unless electronic signature is present EXAM CT of the abdomen and pelvis without contrast media HISTORY Nausea vomiting diarrhea for 2 days with abdominal pain for 2 days. History of COPD and renal failure. TECHNIQUE Transaxial imaging of the abdomen and pelvis was performed without contrast that is compared directly to a previous study of 06/11/2016. This CT exam was performed with one or more of the following radiation dose reduction techniques: automatic control, adjustment of mA and/or kV according to patient size, and iterative reconstruction. FINDINGS Scans through the lung bases show no acute findings. The pleural effusions have resolved. There is relatively marked diffuse atherosclerotic disease present. Scans through the liver are normal. There are multiple surgical clips in the gallbladder fossa. Multiple clips are identified in the region of the lesser sac as well. The pancreas is relatively atrophic. Spleen is normal. There is perinephric soft tissue stranding. There is no evidence of hydronephrosis. There are extensive renovascular calcifications. No dilated or thickened loops of bowel are identified. Appendix is not clearly visualized. There is extensive sigmoid diverticulosis but no convincing evidence of diverticulitis. Uterus is surgically absent. Bladder is normal. Degenerative changes are seen with disc bulging in the lumbar spine. Redemonstrated is abnormal soft tissue density around the proximal SMA. This has not changed significantly since the last examination. It is better demonstrated on the contrast enhanced scan. CONCLUSION [facility] A Service of [facility] RADIOLOGY TEXT RESULTS PATIENT: VALENTIN ASHLEY LOCATION: [facility] 329-01 : 30 UNIT #: [id number] AGE: [address]: Nadeem Sales MD SEX: F ORDER DR: 1. No significant change from the patient's previous study. 2. Abnormal soft tissue thickening around the SMA origin which is stable from previous CTs and of questionable significance. 3. Status post hysterectomy and cholecystectomy. 4. Extensive atherosclerotic disease. 5. Diverticulosis without diverticulitis. 6. Degenerative disc disease lower lumbar spine. Dictated by... Michael Oswald M.D. THIS IS AN ELECTRONICALLY VERIFIED REPORT Michael Oswald M.D. at 06/28/2016 2:53 PM MICHELLE/hemant TD: 06/27/2016 18:59 JOB #: [id number] MEDICAL IMAGING REPORT COPY
--- NOTE | ~2016-06-27 | HP ---
Unit #: [id number] #: [id number] Patient: VALENTIN ASHLEY [id number] [facility] [address] [place], [place] [address] [id number] I MR#: [id number] NAME: VALENTIN ASHLEY ROOM: 329 Age: 85 Sex: F Admission Date: 06/27/2016 : 1930 Attending Physician: Tatiana Villegas M.D. Primary Care Physician: Louann Young M.D. HISTORY AND PHYSICAL CHIEF COMPLAINT Nausea, vomiting. HISTORY OF PRESENT ILLNESS The patient is an 85-year-old female with past medical history of multiple medical problems including end-stage renal disease on dialysis, recent hospitalization for superior mesenteric artery vasculitis and enterococcal bacteremia, chronic anemia, paroxysmal atrial fibrillation, CHF, valvular heart disease, hypertension, hyperlipidemia, peripheral vascular disease, nonsustained ventricular tachycardia, COPD, obstructive sleep apnea, coronary artery disease, dementia, gout, chronic thrombocytopenia who presented to the emergency department for evaluation of the above. Of note, the patient was hospitalized at [facility] 06/15 through 06/22/2016 for abdominal pain. The patient had an extensive workup. She was ultimately diagnosed with superior mesenteric artery vasculitis and was treated with Solu-Medrol. She had remarkable improvement in abdominal pain and was discharged to rehab on a prednisone taper. The patient was also found to have enterococcal bacteremia. She was seen by Infectious Disease. The hemodialysis catheter was removed. Repeat blood culture revealed no growth. She was discharged to rehab on vancomycin for 2 weeks with hemodialysis. The last date of antibiotics is 07/02/2016. The patient states that she was doing okay until the day prior to admission. She states that following dialysis she experience abdominal pain. The abdominal pain involves the entire abdomen but is worse on the left side. She describes it a "pain." There are no exacerbating or alleviating factors. She states that it is similar to the pain that she had with the recent admission. She also reports more than 10 bouts of nonbloody emesis within the past 24 hours. She has had loose stool as well. A repeat CT of the abdomen and pelvis was done in the emergency department today and showed no change. Stable superior mesenteric artery thickening is noted. Laboratory today is notable for a potassium of 2.2, calcium 5.7. Calcium corrects to 7.2 when albumin of 2.1 is accounted for. The emergency room physician, Dr. Markham, spoke with Dr. Hopper of nephrology who recommended three 20 mEq potassium runs as well as 1 amp of calcium gluconate. She is currently receiving these medications. She is being admitted to [facility] for evaluation and further treatment. PAST MEDICAL HISTORY 1. Admission to [facility] 06/15 through 06/22/2016 for abdominal pain attributed to superior mesenteric Unit #: [id number] #: [id number] Patient: VALENTIN ASHLEY artery vasculitis. She was discharged to rehab on a prednisone taper. She also had enterococcal bacteremia and is status post hemodialysis catheter removal. She is currently receiving vancomycin with a stop date of 07/02/2016. She is receiving these antibiotics with hemodialysis. 2. End-stage renal disease on dialysis Saturday, , and Saturday followed by Dr. Mustafa. 3. History of enterococcal bacteremia. As state above, she is status post hemodialysis catheter removal currently receiving vancomycin. 4. Chronic anemia. 5. Paroxysmal atrial fibrillation. She has seen Dr. Sethi in the past. 6. Congestive heart failure. The patient had an echocardiogram 06/20/2010 that showed an ejection fraction of 50% to 55% with mild concentric left ventricular hypertrophy, mild septal hypokinesis, mild mitral regurgitation, mild tricuspid regurgitation, mild aortic regurgitation, right ventricular systolic pressure of 30-40 mmHg. 7. Hypertension. 8. Hyperlipidemia. 9. Peripheral vascular disease. 10. History of nonsustained ventricular tachycardia. 11. Chronic respiratory failure. 12. COPD. 13. Obstructive sleep apnea. 14. Coronary artery disease, status post 2-vessel coronary artery bypass grafting. 15. Chronic thrombocytopenia. 16. Gout. 17. Mild dementia. PAST SURGICAL HISTORY 1. Cholecystectomy. 2. Hysterectomy. 3. Shoulder surgery. 4. Elbow surgery. 5. Coronary artery bypass grafting. 6. Fistula for dialysis. ALLERGIES Morphine. HOME MEDICATIONS Per the discharge summary from 06/22/2016 include: 1. Ventolin two puffs q.4 h. p.r.n. 2. Advair 250/50 inhaled b.i.d. 3. Prednisone 20 mg daily for 1 week; then, 10 mg daily with taper if pain improves. 4. Celexa 10 mg daily. 5. Norvasc 10 mg daily. 6. Colace 100 mg b.i.d. 7. Aricept 10 mg daily. 8. Lasix 40 mg daily. 9. Lipitor 10 mg daily. 10. Lisinopril 10 mg daily. 11. Allopurinol 100 mg daily. 12. Protonix 40 mg daily. 13. Synthroid 100 mcg daily. 14. Imdur ER 60 mg daily. Unit #: [id number] #: [id number] Patient: VALENTIN ASHLEY SOCIAL HISTORY The patient lives alone. She is currently at rehab. There is no tobacco or alcohol use. She walks with a walker. FAMILY HISTORY Notable for her father dying at the age of 90. She had a brother that also at the age of 90. There is coronary artery disease in the family. REVIEW OF SYSTEMS A complete review of systems is negative except as indicated in the HPI. PHYSICAL EXAMINATION VITAL SIGNS: Temperature 98, pulse 93, respirations 27, blood pressure 183/45, oxygen saturation is 94% on room air. GENERAL: The patient is a female who is sleeping but wakes to voice. HEENT: Head is atraumatic. Mucous membranes are dry. NECK: Supple. Trachea is midline. LUNGS: Clear to auscultation bilaterally with no increased work of breathing. HEART: Irregular. ABDOMEN: Soft. She is tender to palpation throughout. Bowel sounds are present in all four quadrants. EXTREMITIES: Nontender with no pedal edema. NEUROLOGIC: Patient is sleeping but wakes to voice. She follows commands. PSYCHIATRIC: Mood and affect are normal. Patient is cooperative. SKIN OF EXAMINED AREAS: Warm and dry. DIAGNOSTIC STUDIES LABORATORY: Blood cultures from 06/19/2016 show no growth after 5 days x2. Complete blood count notable for white blood cell count 11.6, hemoglobin 9, hematocrit 28.6, platelets 112. Lactic acid 1.2. Comprehensive metabolic panel notable for potassium of 2.2, chloride is 118, bicarb 19, calcium 5.7 but corrects to 7.2 when albumin of 2.1 is accounted for. Total protein is 3.9. Amylase and lipase are normal. Urinalysis notable for 3+ protein. IMAGING: CT of the abdomen and pelvis shows no change. Stable superior mesenteric artery thickening. ASSESSMENT The patient is an 85-year-old female with: 1. Abdominal pain, likely secondary to #2. 2. History of superior mesenteric artery vasculitis. 3. Hypocalcemia. The patient received one amp of calcium gluconate in the emergency department. I do not see a magnesium level. 4. Hypokalemia. The patient received three 20 mEq potassium runs in the emergency department. She is on Lasix which could be contributing. 5. Nausea, vomiting. 6. End-stage renal disease on dialysis with last dialysis being on the day prior to admission. 7. History of enterococcal bacteremia, status post removal of dialysis catheter. Currently receiving vancomycin. 8. Chronic anemia. The patient's hemoglobin was 10.8 on 06/22/2016, it is 9 today. 9. Paroxysmal atrial fibrillation. 10. Congestive heart failure with ejection fraction as noted above. 11. Valvular heart disease with echocardiogram results noted above. Unit #: [id number] #: [id number] Patient: VALENTIN ASHLEY 12. Hypertension. 13. Hyperlipidemia. 14. Peripheral vascular disease. 15. History of nonsustained ventricular tachycardia. 16. Chronic obstructive pulmonary disease. 17. Obstructive sleep apnea. 18. Coronary artery disease, status post coronary artery bypass grafting. 19. Mild dementia. 20. Gout. 21. Chronic thrombocytopenia. The patient's platelet count has been as low as 65 on 12/09/2012, it is 112 today. PLAN 1. Admit for observation to intermediate level. 2. Normal saline at 75 mL per hour. 3. N.p.o. and will advance to clear liquids as tolerated. 4. P.r.n. Dilaudid. 5. P.r.n. Zofran. 6. Solu-Medrol 40 mg IV q.12 h. with first dose now. 7. Repeat BMP later this evening to follow up hypokalemia and hypocalcemia. 8. Check magnesium level. 9. Consult Dr. Mustafa regarding end-stage renal disease and dialysis needs. 10. Check EKG and cardiac enzymes. 11. Supplemental oxygen. 12. P.r.n. DuoNeb. 13. Repeat labs in the morning including magnesium. 14. SCDs for DVT prophylaxis. 15. Additional workup and consultants based on above. Dictated by Tatiana Villegas M.D. ARI/beena TD: 06/27/2016 22:55 JOB #: [id number] HISTORY AND PHYSICAL X Tatiana Villegas MD X HISTORY AND PHYSICAL
[2016-06-27 14:37] LABS: BASOPHIL% 0.1 % (0-2.5); HEMATOCRIT 28.6 % (35.0-45.0); LYMPHOCYTE# 0.6 X10e3 (1.0-3.5); LYMPHOCYTE% 5.4 % (17.0-45.0); MEAN CELL VOLUME 85.1 FL (83-96); MEAN CORPUSCULAR HEMOGLOBIN 26.7 PG (28-34); MEAN CORPUSCULAR HGB CONC 31.4 g/dL (30-36); MONOCYTE# 0.4 X10e3 (0-1.0); MONOCYTE% 3.6 % (3.0-12.0); NEUTROPHIL# 10.5 X10e3 (1.5-7.1); NEUTROPHIL% 90.9 % (40-75); PLATELET COUNT 112 X10e3 (140-420); RED BLOOD COUNT 3.36 X10e (3.90-5.30); RED CELL DISTRIBUTION WIDTH 17.4 % (11.0-15.5); WHITE BLOOD COUNT 11.6 X10e3 (4.0-10.5)
[2016-06-27 14:39] LABS: DIFF IND NO
[~2016-06-27 15:17] MED LIST changes: +ADVAIR 250-501 EAC1 INH; +ALLERGY TAB PO; +CARVEDILOL6.25 MG PO; +ISOSORBIDE MONO60 M1 PO; +LEVO-T100 MCG PO; +LISINOPRIL10 MG PO
[2016-06-27 15:18] LABS: ALBUMIN SERUM 2.1 g/dL (3.5-5.0); BILIRUBIN, DIRECT 0.2 mg/dL (0.0-0.2); BILIRUBIN,INDIRECT 0.4 mg/dL (0.0-0.9); BILIRUBIN,TOTAL 0.6 mg/dL (0.2-2.0); PROTEIN TOTAL SERUM 3.9 g/dL (6.0-8.3)
[2016-06-27 15:27] LABS: CALCIUM SERUM 5.7 mg/dL (8.4-10.2); POTASSIUM 2.2 mmol/L (3.5-5.1)
[2016-06-27 15:37] LABS: URINE SOURCE CLEAN CATCH
[2016-06-27 15:41] LABS: URINE APPEARANCE CLEAR; URINE BILIRUBIN NEG (NEG); URINE BLOOD TRACE (NEG); URINE COLOR YELLOW; URINE GLUCOSE NEG (NEG); URINE KETONE NEG (NEG); URINE LEUKOCYTE ESTERASE NEG (NEG); URINE NITRATE NEG (NEG); URINE PROTEIN 3+ (NEG); URINE SPECIFIC GRAVITY 1.014 (1.003-1.035); URINE UROBILINOGEN 0.2 MG/DL (NEG)
[2016-06-27 15:44] LABS: U HYALINE CASTS AUWI 0-2 /[LPF]; URINE BACTERIA AUWI NEG (NEGATIVE); URINE SQUAMOUS EPITHELIAL CELL NONE SEEN /[HPF]; UWBCS1 AUWI 0-2 (0-5)
[2016-06-27 15:46] LABS: CULTURE INDICATED? NO
[2016-06-27] MEDS ORDERED: ARICEPT5 M1 PO (17:26)
[2016-06-27] MEDS ORDERED: LISINOPRIL20 MG PO (17:31)
[2016-06-27] MEDS ORDERED: ALBUTEROL17 GM INH (17:35)
[2016-06-27] MEDS ORDERED: PREDNISONE10 MG PO (17:37)
[2016-06-27] MEDS ORDERED: PREDNISONE PO (17:39)
[2016-06-27] MEDS ORDERED: NORVASC PO (17:41)
[2016-06-27] MEDS ORDERED: LASIX PO (17:41)
[2016-06-27] MEDS ORDERED: COLACE PO (17:42)
[2016-06-27] MEDS ORDERED: HYDROCODON-ACE1 EAC7 PO (17:43)
[2016-06-27 18:40] LABS: CK TOTAL 12 IU/L (26-140)
[2016-06-27 21:55] LABS: CALCIUM SERUM 8.9 mg/dL (8.4-10.2); GLOM FILT RATE Estimated 25.2 mL/min (>60); POTASSIUM 4.7 mmol/L (3.5-5.1)
[2016-06-28] LABS: CK TOTAL 10 IU/L (26-140)
[2016-06-28 09:36] LABS: ALBUMIN SERUM 3.5 g/dL (3.5-5.0); BILIRUBIN,TOTAL 1.3 mg/dL (0.2-2.0); BUN/CREATININE RATIO 15.65; CALCIUM SERUM 9.2 mg/dL (8.4-10.2); CREATININE SERUM 2.3 mg/dL (0.6-1.4); GLOM FILT RATE Estimated 21.4 mL/min (>60); MAGNESIUM 1.9 mg/dL (1.6-3.0); POTASSIUM 5.1 mmol/L (3.5-5.1); PROTEIN TOTAL SERUM 6.7 g/dL (6.0-8.3)
[2016-06-28 09:46] LABS: CK TOTAL 15 IU/L (26-140)
[2016-06-28 11:02] LABS: MEAN CELL VOLUME 84.3 FL (83-96); MEAN CORPUSCULAR HEMOGLOBIN 26.6 PG (28-34); MEAN CORPUSCULAR HGB CONC 31.5 g/dL (30-36); MEAN PLATELET VOLUME 8.8 FL (6.5-11.5); RED BLOOD COUNT 4.63 X10e (3.90-5.30); RED CELL DISTRIBUTION WIDTH 17.8 % (11.0-15.5)
[2016-06-28 11:03] LABS: HEMOGLOBIN 12.3 gm/dL (12.0-16.0)
[2016-06-28 11:04] LABS: WHITE BLOOD COUNT 25.8 X10e3 (4.0-10.5)
[2016-06-29 07:00] LABS: HEMATOCRIT 39.1 % (35.0-45.0); HEMOGLOBIN 12.2 gm/dL (12.0-16.0); MEAN CELL VOLUME 85.3 FL (83-96); MEAN CORPUSCULAR HEMOGLOBIN 26.6 PG (28-34); MEAN CORPUSCULAR HGB CONC 31.1 g/dL (30-36); MEAN PLATELET VOLUME 9.4 FL (6.5-11.5); RED BLOOD COUNT 4.59 X10e (3.90-5.30); RED CELL DISTRIBUTION WIDTH 17.7 % (11.0-15.5); WHITE BLOOD COUNT 27.2 X10e3 (4.0-10.5)
[2016-06-29 07:32] LABS: BUN/CREATININE RATIO 9.47; CALCIUM SERUM 9.4 mg/dL (8.4-10.2); CREATININE SERUM 1.9 mg/dL (0.6-1.4); GLOM FILT RATE Estimated 26.7 mL/min (>60); POTASSIUM 3.9 mmol/L (3.5-5.1)
== END 2016-07-01 03:09 | disposition expired | DRG 545 ==
LOC: CED 15:17 → CEDOF 17:30 → C3A PCU 06-29 15:00
PROVIDERS: Emergency Medicine; Family Medicine; Internal Medicine
PROC: 5A1D00Z (ICD-10-PCS; principal; 2016-06-29)
DX: I77.6 Arteritis, unspecified (principal); N18.6 End stage renal disease; I47.2 Ventricular tachycardia; I13.2 Hypertensive heart and chronic kidney disease with heart failure and with stage 5 chronic kidney disease, or end stage renal disease; J96.10 Chronic respiratory failure, unspecified whether with hypoxia or hypercapnia; D69.6 Thrombocytopenia, unspecified; F03.90 Unspecified dementia, unspecified severity, without behavioral disturbance, psychotic disturbance, mood disturbance, and anxiety; E83.51 Hypocalcemia; I50.32 Chronic diastolic (congestive) heart failure; I48.0 Paroxysmal atrial fibrillation; Z99.2 Dependence on renal dialysis; D64.9 Anemia, unspecified; I34.0 Nonrheumatic mitral (valve) insufficiency; I35.1 Nonrheumatic aortic (valve) insufficiency; E78.5 Hyperlipidemia, unspecified; I73.9 Peripheral vascular disease, unspecified; J44.9 Chronic obstructive pulmonary disease, unspecified; G47.33 Obstructive sleep apnea (adult) (pediatric); I25.10 Atherosclerotic heart disease of native coronary artery without angina pectoris; Z95.1 Presence of aortocoronary bypass graft; M10.9 Gout, unspecified; Z51.5 Encounter for palliative care; Z90.710 Acquired absence of both cervix and uterus; E87.6 Hypokalemia; Z66 Do not resuscitate; B95.2 Enterococcus as the cause of diseases classified elsewhere; Z90.49 Acquired absence of other specified parts of digestive tract
CPT/HCPCS: 36415; 51701; 74176; 80048; 80053; 80076; 81003; 82150; 82550; 83605; 83690; 83735; 84484; 85025; 85027; 87340; 93005; 96361; 96374; 96376; 99285; J0360; J0610; J0885; J1170; J1644; J2060; J2405; J2550; J2920; J3370